=== PATIENT | female | born 1925 | race Hispanic/Latino ===

== ENCOUNTER 2016-12-21 22:54 | Observation (INO) | payer MEDICARE ==
[2016-12-21] MEDS ORDERED: Morphine 2 mg/ml ISec IM STA (23:24)
--- NOTE | 2016-12-21 23:28 | ED PDOC ---
Arrival/HPI - General Historian: Patient, Family - History of Present Illness Time/Duration: Other (see hpi) Context: Home - General Chief Complaint: Finger,Hand,&Wrist Time Seen by Provider: 12/21/16 22:56 - History of Present Illness Narrative History of Present Illness (Text): 12/21/16 23:25 This 89 yo female presents to this ED c/o left finger pain x 2 days. Pain exacerbated x 2 hours ago. Patient has been taking Advil for pain with mild relief of symptoms. Denies fever, rash, trauma, or swelling. (Elodia Elliott) Past Medical History - Provider Review Nursing Documentation Reviewed: Yes - Infectious Disease Hx of Infectious Diseases: None - Tetanus Immunization Tetanus Immunization: Unknown - Cardiac Hx Congestive Heart Failure: Yes Hx Hypertension: Yes Hx Pacemaker: Yes Hx Peripheral Edema: Yes (ble +3) Other/Comment: varicose veins - Pulmonary Hx Respiratory Disorders: (has home o2) Hx Chronic Obstructive Pulmonary Disease (COPD): Yes - Renal Hx Renal Disorder: Yes - Endocrine/Metabolic Hx Endocrine Disorders: Yes Hx Diabetes Mellitus Type 2: Yes - Integumentary Other/Comment: reddened excoriated buttocks, bilateral lower extremities discolored - Musculoskeletal/Rheumatological Hx Falls: No - Gastrointestinal Hx Gastroesophageal Reflux: Yes - Psychiatric Hx Depression: No Hx Emotional Abuse: No Hx Physical Abuse: No Hx Substance Use: No - Surgical History Hx Open Heart Surgery: Yes (triple by pass) - Suicidal Assessment Feels Threatened In Home Enviroment: No Family/Social History - Physician Review Nursing Documentation Reviewed: Yes Family/Social History: No Known Family HX Smoking Status: Never Smoked Hx Alcohol Use: No Hx Substance Use: No Hx Substance Use Treatment: No Allergies/Home Meds Allergies/Adverse Reactions: Allergies No Known Allergies Allergy (Verified 12/04/11 15:43) Home Medications: Home Meds Medication Instructions Recorded Confirmed Aspirin 81 mg PO DAILY 12/22/16 12/22/16 Atorvastatin [Lipitor] 20 mg PO DAILY 12/22/16 12/22/16 Ferrous Gluconate [Fergon] 324 mg PO BID 12/22/16 12/22/16 Furosemide [Lasix] 40 mg PO BID 12/22/16 12/22/16 GlipiZIDE [Glucotrol] 5 mg PO DAILY 12/22/16 12/22/16 Isosorbide Mononitrate [Imdur] 60 mg PO DAILY 12/22/16 12/22/16 Metoprolol Tartrate [Lopressor] 50 mg PO DAILY 12/22/16 12/22/16 Multivit-Min/FA/Lycopen/Lutein 1 tab PO DAILY 12/22/16 12/22/16 [Centrum Silver Tablet] Spironolactone [Aldactone] 25 mg PO BID 12/22/16 12/22/16 rOPINIRole [Requip] 0.25 mg PO BID 12/22/16 12/22/16 Review of Systems - Review of Systems Constitutional: Normal. absent: Fatigue, Weight Change, Fevers Eyes: Normal ENT: Normal Respiratory: Normal. absent: SOB, Cough Cardiovascular: Normal. absent: Chest Pain Gastrointestinal: Normal. absent: Abdominal Pain, Nausea, Vomiting Genitourinary Female: Normal Musculoskeletal: Other ((+) b/l hand and finger painful Gouty Tophi ) Skin: Normal Neurological: Normal Endocrine: Normal Hemo/Lymphatic: Normal Psychiatric: Normal Physical Exam Temperature: Afebrile Blood Pressure: Normal Pulse: Regular Respiratory Rate: Normal Appearance: Positive for: Well-Appearing, Non-Toxic, Comfortable Pain Distress: None Mental Status: Positive for: Alert and Oriented X 3 - Systems Exam Head: Present: Atraumatic, Normocephalic Pupils: Present: PERRL Extroacular Muscles: Present: EOMI Conjunctiva: Present: Normal Mouth: Present: Moist Mucous Membranes Neck: Present: Normal Range of Motion Respiratory/Chest: Present: Clear to Auscultation, Good Air Exchange. No: Respiratory Distress, Wheezes Cardiovascular: Present: Regular Rate and Rhythm, Normal S1, S2 Back: Present: Normal Inspection Upper Extremity: Present: NORMAL PULSES, Neurovascularly Intact, Capillary Refill < 2s, Other (Giant Gouty Tophi of b/l Hands, left worse than right). No : Cyanosis, Edema, Swelling, Erythema, Temperature Abnormalties Lower Extremity: Present: Normal Inspection Neurological: Present: GCS=15, CN II-XII Intact, Speech Normal, Motor Func Grossly Intact, Normal Sensory Function Skin: Present: Warm, Dry, Normal Color. No: Rashes Psychiatric: Present: Alert, Oriented x 3 Vital Signs Temp Pulse Pulse Resp BP Pulse Ox 12/22/16 13:24 98 F 58 L 58 L 18 110/58 L 06/13/17 07:30 98.0 F 58 L 20 110/58 L 94 L 12/22/16 03:55 72 18 112/84 99 12/21/16 22:57 98.0 F 71 16 99/60 L 95 Medical Decision Making Re-evaluation Time: 01:40 Reassessment Condition: Re-examined, Improved ED Course and Treatment: 12/22/16 04:41 Patient was getting ready to be discharge when she became altered. Patient was found to be hypoglycemic. Started on hyperglycemic agents. Case discussed with Dr. Dill who is aware and agrees with the plan to observe patient at Med/ surg for hypoglycemia. Accepts patient under his service. (Ezio Live) 12/22/16 01:40 Re-evaluation. Patient feels better. Discussed results and plan with patient and her son who expresses understanding. All questions answered and there is agreement with the plan to discharge home with instructions. Patient stable for discharge. Return if symptoms persist or worsen (Elodia Elliott) - Lab Interpretations Lab Results: 12/22/16 02:40 12/22/16 02:40 Lab Results 12/22/16 03:49: POC Glucose (mg/dL) 181 H 12/22/16 03:26: POC Glucose (mg/dL) 278 H 12/22/16 02:40: Sodium 141, Potassium 5.4 H, Chloride 106, Carbon Dioxide 23, Anion Gap 17, BUN 88 H, Creatinine 2.0 H, Est GFR ( Amer) 28, Est GFR ( Non-Af Amer) 23, Random Glucose 28 L* D, Calcium 8.9, Total Bilirubin 0.3, AST 40 H, ALT 37, Alkaline Phosphatase 80, Troponin I 0.08 D, Total Protein 7.1, Albumin 4.1, Globulin 3.1, Albumin/Globulin Ratio 1.3 12/22/16 02:40: WBC 6.7, RBC 3.75, Hgb 11.7 L, Hct 34.8 L, MCV 92.8, MCH 31.2, MCHC 33.6, RDW 15.1 H, Plt Count 117 L, MPV 9.9, Gran % 63.2, Lymph % (Auto) 26.0, [place] % (Auto) 8.3 H, Eos % (Auto) 2.4, Baso % (Auto) 0.1, Gran # 4.25, Lymph # 1.8, [place] # 0.6, Eos # 0.2, Baso # 0.01 - Medication Orders Current Medication Orders: Acetaminophen (Tylenol 325mg Tab) 650 mg PO Q4H PRN PRN Reason: Pain, Mild (1-3) Allopurinol (Zyloprim) 100 mg PO DAILY [facility] Codeine Sulfate (Codeine) 30 mg PO Q4 PRN PRN Reason: Pain, moderate (4-7) Last Admin: 12/22/16 10:34 Dose: 30 mg Re-Assess: [facility] Pain Assessment Document 12/22/16 11:34 [facility] (Rec: 12/22/16 12:52 [facility] [id number]) Pain Reassessment Is this a pain reassessment? Yes Sleep Is patient sleeping during reassessment? No Presence of Pain Presence of Pain No Dextrose/Sodium Chloride (Dextrose 5%/0.45% Ns 1000 Ml) 1,000 mls @ 60 mls/hr IV .[id number] [facility] Last Admin: 12/22/16 05:06 Dose: 60 mls/hr Insulin Human Regular (Humulin R Low) 0 units SC ACHS [facility] PRN Reason: Protocol Last Admin: 12/22/16 11:30 Dose: Not Given Non-Admin Reason: Blood Sugar Parameter Discontinued Medications Colchicine (Colocrys) 1.2 mg PO STAT STA Stop: 12/21/16 23:32 Last Admin: 12/21/16 23:50 Dose: 1.2 mg Colchicine (Colocrys) 0.6 mg PO STAT STA Stop: 12/22/16 00:16 Last Admin: 12/22/16 00:44 Dose: 0.6 mg Dextrose (Dextrose 50% Inj) Confirm Administered Dose 50 ml .ROUTE .STK-MED ONE Stop: 12/22/16 03:23 Last Admin: 12/22/16 03:26 Dose: 50 ml Comments: adm IV push for blood sugar level of 28 Dextrose (Dextrose 50% Inj) 50 ml IVP STAT STA Stop: 12/22/16 05:49 Last Admin: 12/22/16 05:53 Dose: 50 ml Morphine Sulfate (Morphine) 1 mg IM STAT STA Stop: 12/21/16 23:25 Last Admin: 12/21/16 23:49 Dose: 1 mg Ondansetron HCl (Zofran Odt) 4 mg PO STAT STA Stop: 12/21/16 23:25 Last Admin: 12/21/16 23:49 Dose: 4 mg Oxycodone/Acetaminophen (Percocet 2.5/325 Mg Tab) 1 tab PO STAT STA Stop: 12/22/16 01:01 Last Admin: 12/22/16 01:26 Dose: 1 tab Pneumococcal Polyvalent Vaccine (Pneumovax 23 Vaccine) 0.5 ml IM .ONCE ONE Stop: 12/22/16 13:38 Disposition/Present on Arrival - Present on Arrival Any Indicators Present on Arrival: No History of DVT/PE: No History of Uncontrolled Diabetes: Yes Urinary Catheter: No History of Decub. Ulcer: No History Surgical Site Infection Following: None - Disposition Have Diagnosis and Disposition been Completed?: Yes Disposition Time: 03:40 Patient Plan: Observation - Disposition Diagnosis: Multiple gouty tophi, Hand pain, Hypoglycemia secondary to sulfonylurea Disposition: HOSPITALIZED Patient Problems: Current Active Problems Problem Status Onset Hand pain Acute Hypoglycemia secondary to sulfonylurea Acute Multiple gouty tophi Acute Condition: GOOD
[2016-12-22] MEDS ORDERED: Oxycodone/Acetaminophen 2.5/325 mg Tab PO STA (01:00)
[2016-12-22 02:49] LABS: ADD MANUAL DIFF? NO
[2016-12-22 02:52] LABS: BASO # 0.01 K/mm3 (0.0-2.0); BASO % 0.1 % (0.0-3.0); EOS # 0.2 (0.0-0.7); EOS % 2.4 % (1.5-5.0); GRAN # 4.25 (1.4-6.5); GRAN % 63.2 % (50.0-68.0); HEMATOCRIT 34.8 % (36.0-48.0); LYMPH # 1.8 (1.2-3.4); MEAN CELL VOLUME 92.8 fL (80.0-105.0); MEAN CORPUSCULAR HEMOGLOBIN 31.2 pg (25.0-35.0); MEAN CORPUSCULAR HGB CONC 33.6 g/dl (31.0-37.0); MEAN PLATELET VOLUME 9.9 fl (7.0-11.0); MONO # 0.6 (0.1-0.6); MONO % 8.3 % (1.0-6.0); PLATELET COUNT 117 10^3/uL (120.0-450.0); RED CELL DISTRIBUTION WIDTH 15.1 % (11.5-14.5); WHITE BLOOD COUNT 6.7 10^3/ul (4.5-11.0)
[2016-12-22 03:08] LABS: ALB/GLOB RATIO 1.3 (1.1-1.8); BILIRUBIN,TOTAL 0.3 mg/dL (0.2-1.3); CALCIUM 8.9 mg/dL (8.4-10.5); POTASSIUM 5.4 mmol/L (3.6-5.0); TOTAL PROTEIN 7.1 g/dL (5.8-8.3)
[2016-12-22 03:18] LABS: TROPONIN I 0.08 ng/mL
[2016-12-22] MEDS ORDERED: Dextrose 50% SYRINGE Inj (50 ml) ONE (03:22)
[2016-12-22] MEDS ORDERED: Dextrose 5%/0.45% NS 1,000 ML IV SCH (04:45)
[2016-12-22] MEDS ORDERED: Dextrose 50% SYRINGE Inj (50 ml) IVP STA (05:48)
[2016-12-22] MEDS: Insulin Reg-LOW-Coverage SC SCH ×3 (08:17→16:22)
[2016-12-22 13:12] LABS: URIC ACID 9.2 mg/dL (2.5-6.2)
[2016-12-22 13:37] VITALS: BMI 27.6
[2016-12-22] MEDS ORDERED: Pneumococcal 23-Valent Vaccine IM ONE (13:37)
--- NOTE | 2016-12-22 13:38 | RAD ---
PROCEDURE: Left Hand Radiographs. HISTORY: hand pain , ? gouty arthritis COMPARISON: None. FINDINGS: BONES: Normal. No fracture. JOINTS: Multiple bony erosions are seen throughout the hand consistent with an erosive arthritis such as gout SOFT TISSUES: Normal. OTHER FINDINGS: None. IMPRESSION: Multiple periarticular bony erosions consistent with gout
--- NOTE | 2016-12-22 14:17 | HP ---
CHIEF COMPLAINT AND HISTORY OF PRESENT ILLNESS: This is an 88-year-old female who [facility] because she is complaining of pain in the left fingers for the past 2 days. She said she has a history of gout and arthritis. She has been using Advil, but not much relief. She came in for further evaluation. She states she is diabetic. She has no complaints of any chest pain or shortne ss of breath, no nausea, no vomiting, no dysuria or frequency. She is unsteady on her feet and does not walk well at home. Her son is at the bedside who is giving give me information. She states that she has diabetes, but the son is not aware whether she has diabetes. They did not bring her medicat ion list and are having a family member come to bring her medications. She says she eats well. She has no abdominal pain, no back pain, no dysuria or frequency, no nocturia. REVIEW OF SYSTEMS: All of the review of symptoms is within normal limits except as mentioned. PAST MEDICAL HISTORY: Coronary artery disease, status post CABG; aortic valve replacement, pacemaker , GERD; diabetes, type 2; hypertension, dyslipidemia, varicose veins, osteoarthritis; CKD, stage III. FAMILY HISTORY: Noncontributory. SOCIAL HISTORY: She does not smoke or drink. MEDICATIONS: Unknown. ALLERGIES: No known drug allergies. PHYSICAL EXAMINATION: VITAL SIGNS: Temperature is 98, pulse of 58, blood pressure 110/58, respirations 20, O2 saturation 9 4%. Height is 5 feet 6, weight is 171 pounds, BMI is 27. GENERAL: Patient lying in bed, flat, and in no apparent distress. HEAD AND NECK EXAM: Atraumatic, normocephalic. Conjunctivae are pink. Throat clear and mouth with moist mucosa. Oropharynx benign. EYES: Extraocular movements are intact. PERRLA. NECK: Supple. No JVD, thyromegaly, or adenopathy. No bruits. HEART: S1 and S2 regular rate and rhythm. No murmurs, rubs, or gallops. LUNGS: Clear to auscultation bilaterally. No wheezing rales or rhonchi appreciated. No retraction s on exam. ABDOMEN: Soft, nontender, nondistended. Bowel sounds are positive in all quadrants. No rebound. No hepatosplenomegaly. EXTREMITIES: No cyanosis, clubbing, or edema. In the hands, there are finger deformities of the P IP, DIP, and MCP joints. NEURO: No facial asymmetry, tongue is midline, no uvula deviation. Power is 5/5 in upper extremity and 5/5 in lower extremity. Sensation is normal in upper extremity and lower extremity. PSYCH: Awake, alert, oriented x3. No anxiety or depression symptoms. Good insight. Normal affec t. : No CVA tenderness VASCULAR: 2+ pulses in carotid and pedal pulses. SKIN: No erythema or abnormal nodules noted. SPINE: Normal curvature. LYMPHADENOPATHY: No anterior cervical or posterior cervical adenopathy. No inguinal adenopathy. LABORATORY DATA: Sodium is 141, potassium is 5.4, creatinine is 2.0 (baseline creatinine is 1.6). G lucose was 28; repeat this morning is 177. Troponin 0.08. White count of 6.7, hemoglobin 11.7 ASSESSMENT: 1. Left hand pain secondary to osteoarthritis/gout. 2. Hypoglycemia. 3. Diabetes, type 2. 4. Coronary artery disease. 5. Pacemaker. 6. Aortic valve replacement. 7. Gastroesophageal reflux disease. 8. Dyslipidemia. 9. Chronic kidney disease, stage III, with acute kidney injury. 10. Hyperkalemia. PLAN: The patient is currently comfortable. She was given morphine in the ER. I will place her on codeine. She is going to be on colchicine. She was given colchicine in the ER. The patient is on I V dextrose with half normal saline. She is going to get fingersticks done. I will get Dr. Marquez moreno to evaluate the patient. The son is going to bring her home medications. I suspect that she may be hypoglycemic from her diabetic medications, especially that she has acute kidney injury. Will re peat patient's blood work tomorrow. The patient is on dextrose; this should help her potassium. Toño Dill MD cc: [id number] TT: 12/22/2016 14:16:38 kiera
--- NOTE | 2016-12-22 22:37 | CARD ---
APPROVED REPORT EKG Measurement Heart [id number] <Conclusion> Atrial sensed, ventricular paced rhythm
[2016-12-23] MEDS: Insulin Reg-LOW-Coverage SC SCH ×4 (00:01→16:50)
--- NOTE | 2016-12-23 02:55 | CP.PCM.PN ---
Subjective - Date & Time of Evaluation Date of Evaluation: 12/23/16 Time of Evaluation: 02:51 - Subjective Subjective: S: Patient was seen for complaint of pain in left hand. Denies injury, numbness ,weakness. Has no other complaints. Medical record was reviewed. ROS:neg except as above. O: Last Vital Signs 3 Temp 97.9 F 12/22/16 16:00 Pulse 62 12/22/16 16:00 Resp 20 12/22/16 16:00 BP 111/63 12/22/16 16:00 Pulse Ox 99 12/22/16 16:00 Awake, alert , not in distress. LUNGS:Normal breathing pattern. LEFT HAND:Swelling, deformity of 2nd MP joint. A:Gout/Osteoarthritis. P:Ultram 50 mg PO x 1. Objective - Vital Signs/Intake and Output Vital Signs (last 24 hours): Temp Pulse Resp BP Pulse Ox 97.9 F 62 20 111/63 99 12/22/16 16:00 12/22/16 16:00 12/22/16 16:00 12/22/16 16:00 12/22/16 16:00 Intake and Output: 12/22/16 12/23/16 18:59 06:59 Intake Total 300 Balance 300 - Medications Medications: Current Medications Acetaminophen (Tylenol 325mg Tab) 650 mg PO Q4H PRN PRN Reason: Pain, Mild (1-3) Last Admin: 12/22/16 18:56 Dose: 650 mg Allopurinol (Zyloprim) 100 mg PO DAILY [facility] Last Admin: 12/22/16 16:45 Dose: 100 mg Codeine Sulfate (Codeine) 30 mg PO Q4 PRN PRN Reason: Pain, moderate (4-7) Last Admin: 12/23/16 00:58 Dose: 30 mg Dextrose/Sodium Chloride (Dextrose 5%/0.45% Ns 1000 Ml) 1,000 mls @ 60 mls/hr IV .[id number] [facility] Last Admin: 12/22/16 05:06 Dose: 60 mls/hr Insulin Human Regular (Humulin R Low) 0 units SC ACHS [facility] PRN Reason: Protocol Last Admin: 12/23/16 00:01 Dose: Not Given
[2016-12-23 07:44] LABS: ALB/GLOB RATIO 1.2 (1.1-1.8); BILIRUBIN,TOTAL 0.5 mg/dL (0.2-1.3); CALCIUM 8.6 mg/dL (8.4-10.5); MAGNESIUM 2.2 mg/dL (1.7-2.2); TOTAL PROTEIN 6.5 g/dL (5.8-8.3)
[2016-12-23 07:52] LABS: POTASSIUM 6.2 mmol/L (3.6-5.0)
[2016-12-23 08:01] LABS: HEMATOCRIT 33.5 % (36.0-48.0); MEAN CELL VOLUME 93.3 fL (80.0-105.0); MEAN CORPUSCULAR HEMOGLOBIN 30.6 pg (25.0-35.0); MEAN CORPUSCULAR HGB CONC 32.8 g/dl (31.0-37.0); MEAN PLATELET VOLUME 10.3 fl (7.0-11.0); RED CELL DISTRIBUTION WIDTH 15.3 % (11.5-14.5)
[2016-12-23] MEDS ORDERED: Sod Polystyrene Sulf 15 gm/60 ml Oral Susp PO STA (08:41)
--- NOTE | 2016-12-23 10:36 | DS ---
This is an 89-year-old female who is coming into the hospital after she had hypoglycemia. The patien t was found to be on glipizide and also had acute kidney injury. She had improvement of her symptoms after she was placed on dextrose. The patient had also been on Lasix as an outpatient. The patient was advised to discontinue Lasix and also the Aldactone that she was on. She is going to be on code ine for pain. She was taking NSAIDs with Advil at home. I did speak to the patient's son yesterday and today to give him an update. PHYSICAL EXAMINATION: VITAL SIGNS: Temperature is 98.2, pulse of 104, blood pressure 115/77, respirations 22, O2 saturatio ns 98%. GENERAL: The patient comfortable, in no acute distress. HEENT: Anicteric sclerae. Moist mucosa. NECK: No JVD or adenopathy. CARDIAC: S1/S2. No murmurs. No rubs. Regular. RESPIRATORY: Clear to auscultation bilaterally. No wheezes, rales, or rhonchi. Good air entry. ABDOMEN: Bowel sounds are positive, soft, nontender, and nondistended. EXTREMITIES: No edema. Has 1+ pulses. ASSESSMENT: 1. Hypoglycemia secondary to hypoglycemic medications: 1. Left hand pain secondary to osteoarthritis/gout. 2. Diabetes type 2. 3. Coronary artery disease. 4. Pacemaker. 5. Aortic valve replacement. 6. Gastroesophageal reflux disease. 7. Dyslipidemia. 8. Chronic kidney disease, stage III. 9. Hyperkalemia. PLAN: The patient is currently comfortable. She is on colchicine. She is on her codeine. She is o n isosorbide. She is going to continue with Lipitor for dyslipidemia. I did discontinue the patient 's Lasix, Aldactone and glipizide. I will discontinue the patient's IV fluids, see if she is able to maintain her fingersticks. She is going to be discharged home and follow up as an outpatient with Becca Juarez. I did tell the son to get repeat blood work done as an outpatient. Toño Dill MD cc: [id number] TT: 12/23/2016 10:35:42 tn
--- NOTE | 2016-12-23 10:46 | CON ---
DATE: 12/23/2016 INPATIENT CONSULT REASON FOR CONSULTATION: Left hand pain. HISTORY OF PRESENT ILLNESS: This is an 89-year-old female who was admitted for hypoglycemia who has longstanding bilateral hand pain. The patient has a history of gout and has had longstanding deformi ties and loss of function in both hands for years. According to her and her son, she has not had muc h in terms of treatment for this recently. He says that she did see a doctor who had recommended an ointment or cream to apply, but he did it for a short period of time, and now she is no longer using it. She does complain of bilateral hand pain. She denies any history of trauma. PHYSICAL EXAMINATION: GENERAL: This is an elderly female in no apparent distress. She is awake and alert. EXTREMITIES: Evaluation of both hands - she has some obvious deformities essentially in all her fing ers. She has multiple tophi present in her IP and MCP joints of both hands. She has really limited range of motion of her hands, particularly with her first and second fingers on both hands. She also has numerous tophi that appeared to be almost through the skin. X-rays of the left hand show multiple periarticular erosions consistent with her gouty arthropathy. IMPRESSION: Bilateral hand gouty arthropathy. PLAN: At this point, I recommended medical management for her chronic gout and also pain control. I also recommended some therapy, which can be done as an outpatient. Finally, I recommended to her so n and her that she should follow up with an orthopedic hand specialist for further evaluation and anand atment. If they agree with this, I will see them back on an as needed. Darin Tong MD cc: [id number] TT: 12/23/2016 10:45:28 Confirmation # [id number] Dictation # [id number] jn
[2016-12-23 16:11] VITALS: RESP 20
[2016-12-23 16:57] VITALS: BP 112/59; PULSE 79; TEMP 97.9; O2SAT 100
--- NOTE | 2016-12-23 18:19 | CON ---
DATE: 12/23/2016 REQUESTING PHYSICIAN: Dr. Dill. REASON FOR CONSULTATION: Dyspnea. HISTORY OF PRESENT ILLNESS: This is an 89-year-old woman well known to us from prior evaluations wit h a history of coronary artery disease, status post aortic valve replacement and bypass surgery, cond uction system disease, permanent pacemaker implant, who was admitted with severe pain in her fingers and hands for the past several days. She has a history of advanced gouty arthritis. She has also murillo d some increasing dyspnea. In the Emergency Room, she was treated with IV Lasix with some symptomati c improvement. She has been homebound and has been unable to have pacemaker interrogations performed for over a year. Her last study had suggested that her battery life was approximately 2 years. She is seen on 5R in the presence of her son. She denies any chest pain at present. PAST MEDICAL HISTORY: Notable for the problems mentioned above. She has a history of diabetes, hype rtension, hyperlipidemia, venous varicosities, renal insufficiency, osteoarthritis, gastroesophageal reflux disease. CURRENT MEDICATIONS: Include aspirin, codeine, insulin coverage, Imdur 60 mg daily, Lipitor 20 mg da vanna, Lopressor 50 mg daily, Requip 0.25 mg b.i.d. and allopurinol. ALLERGIES: She has no reported allergies. SOCIAL HISTORY: She does not smoke or drink. FAMILY HISTORY: She cannot recall. REVIEW OF SYSTEMS: A ten-point review of systems is otherwise unremarkable. PHYSICAL EXAMINATION: GENERAL: She is a frail appearing, very elderly woman. VITAL SIGNS: Her blood pressure is 116/70, the pulse of 100, respirations are 14. She is currently afebrile. HEENT: Temporal wasting is noted. Normocephalic. NECK: No JVD. CHEST: Diminished breath sounds heard at the bases with faint rales noted at the left base. HEART: PMI is displaced laterally with a systolic murmur at the left sternal border. ABDOMEN: Soft, nontender with normoactive bowel sounds. EXTREMITIES: Marked gouty changes noted in both hands. No edema present. PSYCHIATRIC: Flat affect, but normal mood. NEUROLOGIC: Alert and oriented x 3. DIAGNOSTIC DATA: Sodium 134, potassium is 6.2 and it has been repeated. BUN and creatinine are 83 a nd 2.3. White count 5.0. Hemoglobin and hematocrit 11.0 and 33.5 with a platelet count of 96,000. BNP 40,600. Chest x-ray was not available in the system. Electrocardiogram reveals atrial-sensed ve ntricular paced rhythm. IMPRESSION: 1. Mildly decompensated congestive heart failure, acute on chronic. 2. Severe hand pain secondary to advanced gouty arthritis. 3. Coronary artery disease, status post bypass surgery and aortic valve replacement. 4. Conduction system disease, status post permanent pacemaker implant in need of pacemaker interroga tion. RECOMMENDATIONS: Current medications should be continued. Conservative management is advised. A kemi blackman interrogation was arranged and performed at the bedside. Normal pacemaker function was found and estimated battery life was 14 months. Outpatient followup of her pacemaker with transtelephonic monitoring will be arranged as well. From a cardiac standpoint, she appears stable for discharge ho me today. Thank you for this consultation. I am happy to see as needed. Cody Garcia MD cc: [id number] TT: 12/23/2016 18:18:31 Confirmation # [id number] Dictation # [id number] mn
[2016-12-23 18:20] LABS: CALCIUM 9.4 mg/dL (8.4-10.5)
[2016-12-23 18:24] LABS: POTASSIUM 5.6 mmol/L (3.6-5.0)
[2016-12-23] MEDS ORDERED: Sod Polystyrene Sulf 15 gm/60 ml Oral Susp PO ONE (18:28)
== END 2016-12-23 22:10 | disposition home or self-care (01) ==
LOC: ED 22:54 → ERH 12-22 04:34 → 5RSO 12-22 06:59
PROVIDERS: ADMIT Internal Medicine Nephrology; ATTEND Internal Medicine Nephrology
DX: E11.649 Type 2 diabetes mellitus with hypoglycemia without coma (principal); M19.042 Primary osteoarthritis, left hand; M10.042 Idiopathic gout, left hand; I25.10 Atherosclerotic heart disease of native coronary artery without angina pectoris; Z95.0 Presence of cardiac pacemaker; Z95.2 Presence of prosthetic heart valve; K21.9 Gastro-esophageal reflux disease without esophagitis; E78.5 Hyperlipidemia, unspecified; I13.0 Hypertensive heart and chronic kidney disease with heart failure and stage 1 through stage 4 chronic kidney disease, or unspecified chronic kidney disease; I50.9 Heart failure, unspecified; N18.3 Chronic kidney disease, stage 3 (moderate); E87.5 Hyperkalemia; E11.22 Type 2 diabetes mellitus with diabetic chronic kidney disease; I45.9 Conduction disorder, unspecified; J44.9 Chronic obstructive pulmonary disease, unspecified; M1A.9XX1 Chronic gout, unspecified, with tophus (tophi); N17.9 Acute kidney failure, unspecified; Z79.82 Long term (current) use of aspirin; Z79.899 Other long term (current) drug therapy; Z95.1 Presence of aortocoronary bypass graft; Z99.81 Dependence on supplemental oxygen; I83.90 Asymptomatic varicose veins of unspecified lower extremity; S30.810A Abrasion of lower back and pelvis, initial encounter; T38.3X5A Adverse effect of insulin and oral hypoglycemic [antidiabetic] drugs, initial encounter

== ENCOUNTER 2016-12-26 23:25 | Inpatient (IN) | payer MEDICARE ==
--- NOTE | 2016-12-27 00:33 | ED PDOC ---
Arrival/HPI - General Chief Complaint: Weakness/Neurological Deficit Time Seen by Provider: 12/27/16 00:21 Historian: Patient, Family (Son) - History of Present Illness Narrative History of Present Illness (Text): 12/27/16 00:30 Isabel Monroy is a2 89 year old female, whose past medical history includes CAD, s/p CABG, aortic valve replacement, pacemaker, GERD, diabetes, hypertension, dyslipidemia, osteoarthritis, and chronic kidney disease, who presents to the Emergency department complaining of near-syncope and weakness. Son reports patient has been near-syncopal at times and very weak for the past 3 days. Son notes patient has not been eating or drinking regularly. Patient also reports diffuse joint aches. Son notes patient was recently discharged from the hospital on 12/23/2016. Patient denies any nausea, vomiting, diarrhea, headache , dizziness, or any other complaints. Time/Duration: < week (3 days) Symptom Onset: Gradual Symptom Course: Unchanged Activities at Onset: Rest, Light Context: Home Past Medical History - Provider Review Nursing Documentation Reviewed: Yes - Infectious Disease Hx of Infectious Diseases: None - Tetanus Immunization Tetanus Immunization: Unknown - Cardiac Hx Congestive Heart Failure: Yes Hx Hypertension: Yes Hx Pacemaker: Yes Hx Peripheral Edema: Yes (ble +3) Other/Comment: varicose veins - Pulmonary Hx Respiratory Disorders: (has home o2) Hx Chronic Obstructive Pulmonary Disease (COPD): Yes - HEENT Hx HEENT Disorder: Yes (eyeglasses) - Renal Hx Renal Disorder: Yes - Endocrine/Metabolic Hx Endocrine Disorders: Yes Hx Diabetes Mellitus Type 2: Yes - Integumentary Other/Comment: reddened excoriated buttocks, bilateral lower extremities discolored - Musculoskeletal/Rheumatological Hx Falls: No - Gastrointestinal Hx Gastroesophageal Reflux: Yes - Psychiatric Hx Depression: No Hx Emotional Abuse: No Hx Physical Abuse: No Hx Substance Use: No - Surgical History Hx Open Heart Surgery: Yes (triple by pass) - Suicidal Assessment Feels Threatened In Home Enviroment: No Family/Social History - Physician Review Nursing Documentation Reviewed: Yes Family/Social History: No Known Family HX Smoking Status: Never Smoked Hx Alcohol Use: No Hx Substance Use: No Hx Substance Use Treatment: No Allergies/Home Meds Allergies/Adverse Reactions: Allergies No Known Allergies Allergy (Verified 12/04/11 15:43) Home Medications: Home Meds Medication Instructions Recorded Confirmed Aspirin 81 mg PO DAILY 12/22/16 12/27/16 Atorvastatin [Lipitor] 20 mg PO DAILY 12/22/16 12/27/16 Isosorbide Mononitrate [Imdur] 60 mg PO DAILY 12/22/16 12/27/16 Multivit-Min/FA/Lycopen/Lutein 1 tab PO DAILY 12/22/16 12/26/16 [Centrum Silver Tablet] rOPINIRole [Requip] 0.25 mg PO BID 12/22/16 12/27/16 Allopurinol [Zyloprim] 1 tab PO DAILY 12/26/16 12/27/16 Metoprolol Succinate [Toprol XL] 1 tab PO DAILY 12/26/16 12/27/16 Polyethylene Glycol 3350 [Miralax] 17 g PO BID 12/26/16 12/26/16 oxyCODONE/Acetaminophen [Percocet 1 tab PO TID 12/26/16 12/26/16 5/325 mg Tab] predniSONE [predniSONE Tab] 1 tab PO DAILY 12/26/16 12/27/16 Review of Systems - Physician Review All systems were reviewed & negative as marked: Yes - Review of Systems Constitutional: Other (+generalized weakness). absent: Fevers Eyes: Normal ENT: Normal Respiratory: Normal. absent: SOB, Cough Cardiovascular: Other (+near-syncope) Gastrointestinal: Appetite Changes (+loss of appetite) Genitourinary Female: Normal Musculoskeletal: Arthralgias Skin: Normal Neurological: Normal. absent: Headache, Dizziness Endocrine: Normal Hemo/Lymphatic: Normal Psychiatric: Normal Physical Exam Vital Signs Reviewed: Yes Vital Signs Temp Pulse Resp BP Pulse Ox 12/27/16 02:37 71 18 111/58 L 100 12/26/16 23:38 97.8 F 81 20 106/58 L 97 Temperature: Afebrile Blood Pressure: Normal Pulse: Regular Respiratory Rate: Normal Appearance: Positive for: Well-Appearing, Non-Toxic, Comfortable Pain Distress: None Mental Status: Positive for: Alert and Oriented X 3 - Systems Exam Head: Present: Atraumatic, Normocephalic Pupils: Present: PERRL Extroacular Muscles: Present: EOMI Conjunctiva: Present: Normal Mouth: Present: Moist Mucous Membranes Neck: Present: Normal Range of Motion Respiratory/Chest: Present: Clear to Auscultation, Good Air Exchange. No: Respiratory Distress, Accessory Muscle Use Cardiovascular: Present: Regular Rate and Rhythm, Normal S1, S2. No: Murmurs Abdomen: Present: Normal Bowel Sounds. No: Tenderness, Distention, Peritoneal Signs Back: Present: Normal Inspection Upper Extremity: Present: Normal ROM, NORMAL PULSES, Neurovascularly Intact, Capillary Refill < 2s, Deformity (Chronic deformities of bilateral hand joints) . No: Cyanosis, Edema, Tenderness, Swelling, Erythema, Temperature Abnormalties Lower Extremity: Present: Normal Inspection. No: Edema Neurological: Present: GCS=15, CN II-XII Intact, Speech Normal Skin: Present: Warm, Dry, Normal Color. No: Rashes Psychiatric: Present: Alert, Oriented x 3, Normal Insight, Normal Concentration Medical Decision Making ED Course and Treatment: 12/27/16 00:30 Impression: 89 year old female presents for near-syncope, generalized weakness, loss of appetite, and joint aches. Differential Diagnosis include but are not limited to: near-syncope vs. hypoglycemia vs. ACS vs. electrolyte imbalance vs. gout Plan: -- CT Head w/o contrast -- EKG -- Chest X-ray -- Labs, cardiac enzymes -- Urinalysis -- Reassess and disposition Prior Visits: Notes and results from previous visits were reviewed. On 12/21/2016, pt was seen in the Emergency department for joint pain and hypoglycemia. Pt admitted to the hospital for further evaluation. Progress Notes: 12/27/16 01:27 Reviewed EKG, 100% paced rhythm at 81 bpm. 12/27/16 01:48 Troponin: 1.49. Lovenox ordered. 12/27/16 02:16 Reviewed radiology, CT Head shows: No evidence of acute intracranial hemorrhage. No midline shift or hydrocephalus. Age-appropriate atrophy. Areas of diminished density in the periventricular and subcortical white matter bilaterally, nonspecific however likely represent chronic small vessel ischemic change.If symptoms persist, correlation with MRI is advised. 12/27/16 02:55 Reviewed Chest X-ray, shows chronic changes. 12/27/16 02:[address] Madden, covering for Dr. Turner, who is aware and agrees with plan. Pt will be admitted to Telemetry for hyperkalemia and NSTEMI under Dr. Dill's service. Request Dr. Garcia/Lesley on consult. - Critical Care Critical Care Minutes: 30 minutes - Lab Interpretations Lab Results: 12/27/16 00:45 12/27/16 00:45 Lab Results 12/27/16 00:45: WBC 3.9 L D, RBC 3.57, Hgb 11.1 L, Hct 32.7 L, MCV 91.6, MCH 31.1, MCHC 33.9, RDW 14.7 H, Plt Count 81 L, MPV 9.9 12/27/16 00:45: Sodium 138, Potassium 5.7 H*, Chloride 103, Carbon Dioxide 21, Anion Gap 20, BUN 101 H, Creatinine 2.7 H, Est GFR ( Amer) 20, Est GFR ( Non-Af Amer) 17, Random Glucose 137 H, Calcium 9.4, Total Bilirubin 0.7, AST 50 H, ALT 44, Alkaline Phosphatase 81, Lactate Dehydrogenase 597, Total Creatine Kinase 127, Troponin I 1.49 H* D, Total Protein 6.9, Albumin 3.7, Globulin 3.1, Albumin/Globulin Ratio 1.2 12/27/16 00:45: PT 12.2 H, INR 1.13 H, APTT 22.5 L I have reviewed the lab results: Yes - RAD Interpretation Narrative RAD Interpretations (Text): CT Head shows: There is mild ventriculomegaly and cortical sulci widening. There are areas of diminished density in the periventricular and subcortical white matter bilaterally, nonspecific. There is no evidence for hemorrhage, mass effect, or extra-axial fluid collections. No skull abnormalities are seen. Small amount of fluid in the RIGHT maxillary sinus IMPRESSION: No evidence of acute intracranial hemorrhage. No midline shift or hydrocephalus. Age-appropriate atrophy. Areas of diminished density in the periventricular and subcortical white matter bilaterally, nonspecific however likely represent chronic small vessel ischemic change.If symptoms persist, correlation with MRI is advised. Radiology Orders: 12/27/16 00:31 HEAD W/O CONTRAST [CT] Stat 12/27/16 00:32 CHEST PORTABLE [RAD] Stat Oncologist: Radiologist - EKG Interpretation Interpreted by ED Physician: Yes Type: 12 lead EKG - Medication Orders Current Medication Orders: Allopurinol (Zyloprim) 100 mg PO DAILY [facility] Last Admin: 12/27/16 10:19 Dose: 100 mg Aspirin (Aspirin Chewable) 81 mg PO DAILY [facility] Last Admin: 12/27/16 10:10 Dose: 81 mg Atorvastatin Calcium (Lipitor) 20 mg PO DAILY [facility] Last Admin: 12/27/16 10:09 Dose: 20 mg Colchicine (Colocrys) 0.6 mg PO DAILY [facility] Last Admin: 12/27/16 12:19 Dose: 0.6 mg Sodium Chloride (Sodium Chloride 0.45%) 1,000 mls @ 50 mls/hr IV .Q20H [facility] Last Admin: 12/27/16 12:20 Dose: 50 mls/hr Insulin Human Lispro (Humalog High) 0 units SC ACHS [facility] PRN Reason: Protocol Last Admin: 12/27/16 18:10 Dose: 4 units Isosorbide Mononitrate (Imdur) 60 mg PO DAILY [facility] Last Admin: 12/27/16 10:09 Dose: 60 mg Methylprednisolone (Solu-Medrol) 30 mg IV Q12 [facility] Last Admin: 12/27/16 12:19 Dose: 30 mg Metoprolol Succinate (Toprol Xl) 50 mg PO DAILY [facility] Last Admin: 12/27/16 10:12 Dose: 50 mg Oxycodone/Acetaminophen (Percocet 5/325 Mg Tab) 1 tab PO TID [facility] Stop: 12/30/16 10:01 Last Admin: 12/27/16 18:11 Dose: 1 tab Polyethylene Glycol (Miralax) 17 gm PO BID [facility] Last Admin: 12/27/16 18:13 Dose: 17 gm Ropinirole HCl (Requip) 0.25 mg PO BID [facility] Last Admin: 12/27/16 18:13 Dose: 0.25 mg Discontinued Medications Dextrose (Dextrose 50% Inj) 50 ml IVP ONCE ONE Stop: 12/27/16 03:07 Last Admin: 12/27/16 03:19 Dose: 50 ml Enoxaparin Sodium (Lovenox) 50 mg SC STAT [facility] PRN Reason: Protocol Stop: 12/27/16 01:48 Last Admin: 12/27/16 02:03 Dose: 50 mg Insulin Human Regular (Humulin R) 10 units IVP STAT STA Stop: 12/27/16 03:07 Last Admin: 12/27/16 03:19 Dose: 10 units Prednisone (Prednisone Tab) 10 mg PO DAILY [facility] Last Admin: 12/27/16 10:12 Dose: 10 mg Sodium Polystyrene Sulfonate (Kayexalate Oral Susp) 30 gm PO ONCE ONE Stop: 12/27/16 01:46 Last Admin: 12/27/16 02:03 Dose: 30 gm - Scribe Statement The provider has reviewed the documentation as recorded by the Calosiboswaldo Almendarez All medical record entries made by the Calosiboswaldo were at my direction and personally dictated by me. I have reviewed the chart and agree that the record accurately reflects my personal performance of the history, physical exam, medical decision making, and the department course for this patient. I have also personally directed, reviewed, and agree with the discharge instructions and disposition. Disposition/Present on Arrival - Present on Arrival Any Indicators Present on Arrival: No History of DVT/PE: No History of Uncontrolled Diabetes: Yes Urinary Catheter: No History of Decub. Ulcer: No History Surgical Site Infection Following: None - Disposition Have Diagnosis and Disposition been Completed?: Yes Diagnosis: Near syncope, NSTEMI (non-ST elevated myocardial infarction) Disposition: HOSPITALIZED Disposition Time: 02:55 Condition: STABLE
[2016-12-27 00:59] LABS: HEMATOCRIT 32.7 % (36.0-48.0); MEAN CELL VOLUME 91.6 fL (80.0-105.0); MEAN CORPUSCULAR HEMOGLOBIN 31.1 pg (25.0-35.0); MEAN CORPUSCULAR HGB CONC 33.9 g/dl (31.0-37.0); MEAN PLATELET VOLUME 9.9 fl (7.0-11.0); RED CELL DISTRIBUTION WIDTH 14.7 % (11.5-14.5); WHITE BLOOD COUNT 3.9 10^3/ul (4.5-11.0)
[2016-12-27 01:04] LABS: ALB/GLOB RATIO 1.2 (1.1-1.8); BILIRUBIN,TOTAL 0.7 mg/dL (0.2-1.3); CALCIUM 9.4 mg/dL (8.4-10.5); TOTAL PROTEIN 6.9 g/dL (5.8-8.3)
[2016-12-27 01:08] LABS: INR 1.13 (0.93-1.08); PARTIAL THROMBOPLASTIN TIME 22.5 Seconds (23.7-30.8)
[2016-12-27 01:14] LABS: POTASSIUM 5.7 mmol/L (3.6-5.0)
[2016-12-27 01:21] LABS: TROPONIN I 1.49 ng/mL
[2016-12-27] MEDS ORDERED: Sod Polystyrene Sulf 15 gm/60 ml Oral Susp PO ONE (01:45)
[2016-12-27] MEDS ORDERED: Enoxaparin 60 mg Syringe SC STA (01:47)
[2016-12-27] MEDS ORDERED: Dextrose 50% SYRINGE Inj (50 ml) IVP ONE (03:06)
[2016-12-27] MEDS ORDERED: Insulin Regular 1 UNITS/0.01 ML ML IVP STA (03:06)
[2016-12-27 05:23] VITALS: BMI 18.0
[2016-12-27 08:21] LABS: URINE BILIRUBIN NEGATIVE (NEGATIVE); URINE BLOOD SMALL (NEGATIVE); URINE GLUCOSE (UA) NEGATIVE (NEGATIVE); URINE KETONE NEGATIVE (NEGATIVE); URINE LEUKOCYTE ESTERASE TRACE Leu/uL (NEGATIVE); URINE PROTEIN NEGATIVE mg/dL (<30 mg/dL); URINE UROBILINOGEN 0.2 E.U./dL (<1 E.U./dL)
--- NOTE | 2016-12-27 08:33 | RAD ---
HISTORY: weak COMPARISON: Chest x-ray performed 09/27/13 TECHNIQUE: Chest, one view. FINDINGS: The patient's chin obscures evaluation of the lung apices. LUNGS: Right upper lobe interstitial markings may be chronic. Mild right upper lobe infiltrate is not excluded. Bilateral hilar prominence. Please note that chest x-ray has limited sensitivity for the detection of pulmonary masses. PLEURA: No significant pleural effusion identified. No definite pneumothorax . CARDIOVASCULAR: Cardiomegaly. Median sternotomy wires. Prosthetic cardiac valve. Dual lead left-sided pacemaker. OSSEOUS STRUCTURES: Degenerative changes. VISUALIZED UPPER ABDOMEN: Unremarkable. OTHER FINDINGS: None. IMPRESSION: Right upper lobe interstitial markings may be chronic. Mild right upper lobe infiltrate is not excluded. Bilateral hilar prominence. Cardiomegaly.
[2016-12-27 08:36] LABS: URINE APPEARANCE CLEAR (CLEAR); URINE COLOR YELLOW (YELLOW)
[2016-12-27 09:12] LABS: URINE AMORPHOUS SEDIMENT FEW; URINE BACTERIA MOD (NEG); URINE CALCIUM OXALATE CRYSTALS SMALL /hpf
[2016-12-27] MEDS: POLYETHYLENE GLYCOL 3350 17 GM/Dose PACKET PO SCH ×2 (10:09→18:13)
[2016-12-27] MEDS: Oxycodone/Acetaminophen 5/325 mg Tab PO SCH ×3 (10:10→18:11)
[2016-12-27] MEDS: Metoprolol Succinate 50 mg XL Tab PO SCH (10:12)
--- NOTE | 2016-12-27 10:32 | CT ---
PROCEDURE: CT HEAD WITHOUT CONTRAST. HISTORY: near syncope COMPARISON: None available. TECHNIQUE: Axial computed tomography images were obtained through the head/brain without intravenous contrast. Radiation dose: Total exam DLP = 329.42 mGy-cm. This CT exam was performed using one or more of the following dose reduction techniques: Automated exposure control, adjustment of the mA and/or kV according to patient size, and/or use of iterative reconstruction technique. FINDINGS: HEMORRHAGE: No intracranial hemorrhage. BRAIN: Diffuse atrophy with prominence of the ventricles and sulci noted. No mass effect or edema. Scattered white matter hypodensities, which are nonspecific, but often seen with chronic microvascular ischemic disease. Please note that MRI with diffusion imaging is more sensitive in the detection of acute ischemic event. VENTRICLES: No hydrocephalus. CALVARIUM: Unremarkable. PARANASAL SINUSES: Small fluid in the right maxillary sinus. The visualized paranasal sinuses appear otherwise clear. MASTOID AIR CELLS: Unremarkable as visualized. No inflammatory changes. OTHER FINDINGS: None. IMPRESSION: Generalized atrophy. Nonspecific white matter changes. Small fluid in the right maxillary sinus. Preliminary impression was provided by virtual radiologic.
[2016-12-27 11:19] LABS: CALCIUM 9.3 mg/dL (8.4-10.5); POTASSIUM 4.9 mmol/L (3.6-5.0)
[2016-12-27 11:33] LABS: TROPONIN I 1.31 ng/mL
[2016-12-27] MEDS: MethylPREDNISolone 40 mg Vial IV SCH ×2 (12:19→21:40)
[2016-12-27] MEDS: Sodium Chloride 0.45% 1,000 ML IV SCH (12:20)
--- NOTE | 2016-12-27 12:43 | HP ---
ADDENDUM LABORATORY DATA: The patient's lab work noted. She has positive troponin of 1.49, and followup is 1 .31. I do not know whether it is because of worsening of her kidney function or she is having non-ST elevation CO. The patient is on beta-cole, aspirin. She is on Imdur, and Dr. Garcia is following the patient along with us. Given the patient's age, probably she needs to be treated conservatively. Rashad Madden MD cc: [phone] TT: 12/27/2016 12:42:18 jn
--- NOTE | 2016-12-27 15:15 | HP ---
HISTORY OF PRESENT ILLNESS: The patient is an 89-year-old white female, not a very good historian, d oes not tell much. I called son, Kane, to get some history. According to him, she has not been f eeling well since last . She was having pain in her left hand, and she saw Dr. Juarez, who ga ve her allopurinol and prednisone. She has not been eating and drinking and did not have bowel movem ent for almost a week because of poor oral intake, so last night when she came out of the bathroom, s he almost passed out, and Kane's supported her and start her on the chair, and they called am cristofer, and she was brought to Emergency Room. PAST MEDICAL HISTORY: Significant for: 1. Hypertension. 2. Coronary artery disease, status post open heart surgery. 3. History of aortic valve replacement. 4. History of pacemaker placement. 5. Noninsulin dependent diabetes. 6. Hyperlipidemia. 7. Generalized osteoarthritis. 8. Chronic kidney disease. The patient was recently admitted in hospital for left hand gouty arthrit is, and she was discharged on 12/23. She also has past medical history significant for varicose vein, stage III chronic kidney disease. SOCIAL HISTORY: She lives with her son and [id number] and denies smoking or drinking. FAMILY HISTORY: Irrelevant. MEDICATIONS AT HOME: She is on metoprolol 25 daily, prednisone 20 mg daily, allopurinol 1 tablet priyanka ly, Requip 0.25 twice a day, Imdur 60 mg daily, Lipitor 20 mg daily, aspirin 81 daily, MiraLax, Perco cet, and multivitamin. REVIEW OF SYSTEMS: Significant for generalized weakness, poor oral intake, constipation and left ram d pain. PHYSICAL EXAMINATION: GENERAL: She is sleepy, but arousable. VITAL SIGNS: She is afebrile, pulse 65, respirations 18, blood pressure 106/56. LUNGS: Bilateral fair airflow, no rhonchi or crackle. HEART: S1, S2 audible. ABDOMEN: Soft but slightly distended with positive bowel sounds. NEUROLOGIC: The patient is sleepy but arousable, able to move all extremities. No focal deficit. LABORATORY DATA: WBC 3.9, hemoglobin 11, hematocrit 32.7, platelets of 81. PT 12.2, INR 1.13, PTT 2 2.5. Chemistry: Sodium 140, potassium 4.9, chloride 106, CO2 of 23, BUN 95, creatinine 2.5, blood s ugar 157. Troponin is 1.31. Urinalysis is unremarkable. X-ray chest was done that shows right uppe r lobe interstitial marking, may be chronic, mid right upper lobe infiltrate cannot be excluded, bila teral hilar prominence. CT scan of the head shows generalized atrophy, nonspecific white matter ravi ges. ASSESSMENT: 1. Near syncope, probably secondary to dehydration. 2. Left hand gouty arthritis. 3. Hyperkalemia. 4. Coronary artery disease, status post open heart surgery in the remote past. 5. Noninsulin dependent diabetes. 6. Hyperlipidemia. 7. Renal insufficiency. 8. Peptic ulcer disease. PLAN: We will resume patient's medication. Start her on colchicine. We will give her gentle hydrat ion. Repeat potassium after given dose of Kayexalate has improved, and I will order for carotid Dopp ler if not done within the last year, and we will reevaluated the patient in a.m. Rashad Madden MD cc: [phone] TT: 12/27/2016 15:14:26 la
--- NOTE | 2016-12-27 18:08 | CON ---
DATE: 12/27/2016 REQUESTING PHYSICIAN: Dr. Madden. REASON FOR CONSULTATION: Weakness and near syncope. HISTORY OF PRESENT ILLNESS: This is an 89-year-old woman well known to us from prior followup, who p resents to the Emergency Room in the presence of her son with weakness and near syncope. She was hos pitalized last week because of severe pain. She has advanced gouty arthritis, predominantly involvin g the joints of her fingers and hands. She has been in excruciating pain, has been nauseated and keenan ble to have adequate oral intake. She has known coronary disease and has undergone prior aortic valv e replacement and bypass surgery. She also has a permanent pacemaker, which was interrogated on her last admission and found to be functioning properly with adequate battery life. PAST MEDICAL HISTORY: Notable for diabetes, hypertension, hyperlipidemia, gastroesophageal reflux di sease, arthritis, chronic renal insufficiency. MEDICATIONS: At home include aspirin, Lipitor, Imdur, Requip, Zyloprim, Toprol XL, MiraLax and predn isone. ALLERGIES: She has no reported allergies. SOCIAL HISTORY: She does not smoke or drink. She lives with her family. She is . FAMILY HISTORY: Both parents are from age-related illness. REVIEW OF SYSTEMS: A 10-point review of systems is notable mainly for the problems mentioned above. PHYSICAL EXAMINATION: GENERAL: She is a very elderly woman who appears uncomfortable because of her hand pain. VITAL SIGNS: Her blood pressure is 106/56 with a pulse of 66 with a paced rhythm. Respirations are 14. She is afebrile. HEENT: Temporal wasting noted. NECK: No JVD. CHEST: A few scattered rhonchi heard. HEART: PMI displaced laterally. Soft tones are noted. Systolic murmur is present in left sternal b order. ABDOMEN: Soft, nontender, normoactive bowel sounds. EXTREMITIES: No edema. Marked gouty arthritic changes noted in both hands. PSYCHIATRIC: Normal mood and affect. NEUROLOGIC: No gross motor or sensory deficits appreciable. DIAGNOSTIC DATA: Troponin 1.49. Potassium 5.7. BUN and creatinine are 101 and 2.7. White count 3. 9, hemoglobin and hematocrit 11.1 and 32.7 with a platelet count of 81,000. Electrocardiogram reveal s a ventricular paced rhythm. Chest x-ray reveals cardiomegaly with post-sternotomy changes and a pa cemaker system in place. Lung morgan are clear. IMPRESSION: 1. Near syncope, likely due to volume depletion. 2. Acute on chronic renal insufficiency. 3. Coronary artery disease, status post prior bypass surgery and aortic valve replacement, clinicall y stable at present. 4. Conduction system disease, status post permanent pacemaker implant. Currently stable. 5. Rest of problems as noted. RECOMMENDATIONS: Gentle hydration can be administered. Telemetry monitoring will be continued for n ow. There is no need for pacemaker interrogation as this was recently performed. Analgesic therapy should proceed as tolerated. Conservative care is advised. Thank you for this consultation. I am happy to follow through her hospital course. Cody Garcia MD cc: [id number] TT: 12/27/2016 18:07:24 Confirmation # [id number] Dictation # [id number] kiera
[2016-12-27] MEDS: Insulin Lispro (HUMAlog) HIGH Coverage SC SCH ×2 (18:10→21:39)
--- NOTE | 2016-12-27 22:02 | CARD ---
APPROVED REPORT EKG Measurement Heart [id number] <Conclusion> Atrial sensed, ventricular paced rhythm
--- NOTE | 2016-12-28 07:25 | PN ---
DATE: 12/28/2016 SUBJECTIVE: The patient has no complaints of any chest pain, no shortness of breath. No headaches o r dizziness. She has not been eating well. PHYSICAL EXAMINATION: VITAL SIGNS: Temperature is 98.4, pulse of 62, blood pressure 109/68, respirations 20. GENERAL: The patient comfortable, in no acute distress. HEENT: Anicteric sclerae. Moist mucosa. NECK: No JVD or adenopathy. CARDIAC: S1/S2. No murmurs. No rubs. Regular. RESPIRATORY: Clear to auscultation bilaterally. No wheezes, rales, or rhonchi. Good air entry. ABDOMEN: Bowel sounds are positive, soft, nontender, and nondistended. EXTREMITIES: No edema. Has 1+ pulses. LABS: White count of 3.9, hemoglobin 11.9, creatinine is 2.5. EXTREMITIES 1. [id number] myocardial infarction. 2. Acute kidney injury. 3. Coronary artery disease. 4. Hypertension. 5. Aortic valve replacement. 6. Pacemaker. 7. Diabetes type 2. 8. Dyslipidemia. 9. Osteoarthritis. 10. Gout. 11. Peptic ulcer disease. PLAN: The patient is on IV fluids. She is on aspirin. She is going to continue with colchicine for her gout. She is receiving isosorbide. She is on Lipitor for dyslipidemia. She is on MiraLax for constipation. She is on Requip. She is going to be on steroids. She is on metoprolol. She is fox g to continue with allopurinol. Carotid Dopplers have been ordered. She is on a heart healthy diet. I ordered physical therapy. I am going to see if she qualifies for TCU. She is also going to be s een by Dr. Garcia. Toño Dill MD cc: [id number] TT: 12/28/2016 07:24:54 Confirmation # [id number] Dictation # [id number] mn
--- NOTE | 2016-12-28 07:55 | CP.PCM.PN ---
Subjective - Date & Time of Evaluation Date of Evaluation: 12/28/16 Time of Evaluation: 07:00 - Subjective Subjective: Stable on 2R. No CP or SOB. V/S noted. V. Paced PE: Lungs: clear Cor: S1S2 Abd.: soft Ext.: no edema Neuro: alert Labs noted. Trop 1.31, Cr.= 2.5 Objective - Vital Signs/Intake and Output Vital Signs (last 24 hours): Temp Pulse Resp BP Pulse Ox 98.4 F 62 20 109/68 98 12/28/16 06:00 12/28/16 06:00 12/28/16 06:00 12/28/16 06:00 12/28/16 06:00 Intake and Output: 12/28/16 12/28/16 06:59 18:59 Intake Total 1640 Output Total 0 Balance 1640 - Medications Medications: Current Medications Allopurinol (Zyloprim) 100 mg PO DAILY [facility] Last Admin: 12/27/16 10:19 Dose: 100 mg Aspirin (Aspirin Chewable) 81 mg PO DAILY [facility] Last Admin: 12/27/16 10:10 Dose: 81 mg Atorvastatin Calcium (Lipitor) 20 mg PO DAILY [facility] Last Admin: 12/27/16 10:09 Dose: 20 mg Colchicine (Colocrys) 0.6 mg PO DAILY [facility] Last Admin: 12/27/16 12:19 Dose: 0.6 mg Sodium Chloride (Sodium Chloride 0.45%) 1,000 mls @ 50 mls/hr IV .Q20H [facility] Last Admin: 12/27/16 12:20 Dose: 50 mls/hr Insulin Human Lispro (Humalog High) 0 units SC ACHS [facility] PRN Reason: Protocol Last Admin: 12/27/16 21:39 Dose: Not Given Isosorbide Mononitrate (Imdur) 60 mg PO DAILY [facility] Last Admin: 12/27/16 10:09 Dose: 60 mg Methylprednisolone (Solu-Medrol) 30 mg IV Q12 [facility] Last Admin: 12/27/16 21:40 Dose: 30 mg Metoprolol Succinate (Toprol Xl) 50 mg PO DAILY [facility] Last Admin: 12/27/16 10:12 Dose: 50 mg Oxycodone/Acetaminophen (Percocet 5/325 Mg Tab) 1 tab PO TID [facility] Stop: 12/30/16 10:01 Last Admin: 12/27/16 18:11 Dose: 1 tab Polyethylene Glycol (Miralax) 17 gm PO BID [facility] Last Admin: 12/27/16 18:13 Dose: 17 gm Ropinirole HCl (Requip) 0.25 mg PO BID [facility] Last Admin: 12/27/16 18:13 Dose: 0.25 mg - Labs Labs: 12/27/16 11:02 PT 12.2 Seconds (9.9-11.8) H 12/27/16 00:45 INR 1.13 (0.93-1.08) H 12/27/16 00:45 APTT 22.5 Seconds (23.7-30.8) L 12/27/16 00:45 Assessment and Plan - Assessment and Plan (Free Text) Plan: Assessment: Near Syncope/Dehydration + trops in setting of CKD, doubt acute DC AVR/CABG PPM Diabetes HBP HLD GERD Gouty Artjritis CKD Plan: Await AM labs IVF OOB to chair as robbin. Monitor I/O, labs, sats., Will follow.
[2016-12-28] MEDS: Insulin Lispro (HUMAlog) HIGH Coverage SC SCH ×4 (08:17→21:40)
[2016-12-28] MEDS: Sodium Chloride 0.45% 1,000 ML IV SCH (08:18)
[2016-12-28 08:28] LABS: ALB/GLOB RATIO 1.3 (1.1-1.8); BILIRUBIN,TOTAL 0.6 mg/dL (0.2-1.3); CALCIUM 8.6 mg/dL (8.4-10.5); MAGNESIUM 2.3 mg/dL (1.7-2.2); POTASSIUM 5.1 mmol/L (3.6-5.0); TOTAL PROTEIN 6.4 g/dL (5.8-8.3)
[2016-12-28 08:56] LABS: TROPONIN I 0.85 ng/mL
[2016-12-28] MEDS: POLYETHYLENE GLYCOL 3350 17 GM/Dose PACKET PO SCH ×2 (11:36→18:32)
[2016-12-28] MEDS: Metoprolol Succinate 50 mg XL Tab PO SCH (11:37)
[2016-12-28] MEDS: MethylPREDNISolone 40 mg Vial IV SCH ×2 (11:38→21:36)
[2016-12-28] MEDS: Oxycodone/Acetaminophen 5/325 mg Tab PO SCH ×3 (11:50→18:31)
[2016-12-29] MEDS: Sodium Chloride 0.45% 1,000 ML IV SCH ×2 (04:29→23:53)
[2016-12-29 07:18] LABS: MEAN CELL VOLUME 91.7 fL (80.0-105.0); MEAN CORPUSCULAR HEMOGLOBIN 30.5 pg (25.0-35.0); MEAN CORPUSCULAR HGB CONC 33.2 g/dl (31.0-37.0); MEAN PLATELET VOLUME 11.2 fl (7.0-11.0); WHITE BLOOD COUNT 3.3 10^3/ul (4.5-11.0)
[2016-12-29 07:31] LABS: ALB/GLOB RATIO 1.3 (1.1-1.8); BILIRUBIN,TOTAL 0.4 mg/dL (0.2-1.3); CALCIUM 8.7 mg/dL (8.4-10.5); MAGNESIUM 2.2 mg/dL (1.7-2.2); PHOSPHOROUS 4.9 mg/dL (2.5-4.5); POTASSIUM 5.1 mmol/L (3.6-5.0)
[2016-12-29] MEDS: Insulin Lispro (HUMAlog) HIGH Coverage SC SCH ×4 (08:19→22:34)
--- NOTE | 2016-12-29 08:33 | PN ---
DATE: 12/29/2016 DATE: 12/29/2016 SUBJECTIVE: The patient has no complaints of any chest pain, no shortness of breath, no headaches. PHYSICAL EXAMINATION: VITAL SIGNS: Temperature is 98.5. Pulse is 76. Blood pressure is 110/69, respirations 20. GENERAL: The patient is comfortable, in no acute distress. HEENT: Anicteric sclerae. Moist mucosa. NECK: No JVD or adenopathy. CARDIAC: S1/S2. No murmurs. No rubs. Regular. RESPIRATORY: Clear to auscultation bilaterally. No wheezes, rales, or rhonchi. Good air entry. ABDOMEN: Bowel sounds are positive, soft, nontender, and nondistended. EXTREMITIES: No edema. Has 1+ pulses. ASSESSMENT: 1. Non-ST elevation myocardial infarction. 2. Acute kidney injury. 3. Coronary artery disease. 4. Hypertension. 5. Aortic valve replacement. 6. Pacemaker. 7. Diabetes type 2. 8. Dyslipidemia. 9. Osteoarthritis. 10. Peptic ulcer disease. 11. Gout. PLAN: The patient is currently comfortable. Her abdomen seems mildly distended, was soft. She has been refusing her MiraLax. The patient is on aspirin. She is going to continue with Lipitor for dys lipidemia. She is on oxycodone for pain. The patient is on steroids. We will continue to taper her steroids. The patient has carotid Dopplers that she is not able to do because she cannot lie flat w ith her neck that is flexed. We will repeat her blood work tomorrow. She will most likely need reha b. I did speak to the patient's son yesterday to give him an update on the patient's diagnosis and p mariela of care. Toño Dill MD cc: [id number] TT: 12/29/2016 08:32:47 Confirmation # [id number] Dictation # [id number]
[2016-12-29] MEDS: Oxycodone/Acetaminophen 5/325 mg Tab PO SCH ×3 (09:58→17:44)
[2016-12-29] MEDS: POLYETHYLENE GLYCOL 3350 17 GM/Dose PACKET PO SCH ×2 (10:11→17:44)
--- NOTE | 2016-12-29 12:37 | CP.PCM.CON ---
History of Present Illness - History of Present Illness History of Present Illness: Palliative consult requested by Dr Osvaldo Dill Reason: Gaols of care/advance care planning 89 year old female who presented to ED with weakness and near syncope.She also complains of severe pain in her joints. Family reports appetite/fluid intake over the past several days. PMHx: CKD,DM, HTN, HLd, gastric reflux,gouty arthritis,CAD, s/p aortic valve replacement,s/p agricultural produce packer placement Social History: Non smoker, no alcohol,or drug use. , lives with her sons. Family History: Non contributory. Advance Care Planning: The patient does not have an Advance Directive. Sons affirm she is DNR/DNI. Review of Systems: As per HPI, otherwise unremarkable. Past Patient History - Infectious Disease Hx of Infectious Diseases: None - Tetanus Immunizations Tetanus Immunization: Unknown - Past Social History Smoking Status: Never Smoked - CARDIAC Hx Congestive Heart Failure: Yes Hx Hypertension: Yes - PULMONARY Hx Chronic Obstructive Pulmonary Disease (COPD): Yes - NEUROLOGICAL Hx Neurological Disorder: Yes (restless leg syndrome) - HEENT Hx HEENT Problems: Yes (eyeglasses) - RENAL Hx Chronic Kidney Disease: Yes - ENDOCRINE/METABOLIC Hx Diabetes Mellitus Type 2: Yes - HEMATOLOGICAL/ONCOLOGICAL Hx Blood Disorders: No - INTEGUMENTARY Other/Comment: reddened excoriated buttocks, bilateral lower extremities discolored - MUSCULOSKELETAL/RHEUMATOLOGICAL Hx Falls: No - GASTROINTESTINAL Hx Gastroesophageal Reflux: Yes - GENITOURINARY/GYNECOLOGICAL Hx Genitourinary Disorders: No - PSYCHIATRIC Hx Depression: No Hx Emotional Abuse: No Hx Physical Abuse: No Hx Substance Use: No - SURGICAL HISTORY Hx Open Heart Surgery: Yes (triple by pass) Meds Allergies/Adverse Reactions: Allergies Allergy/AdvReac Type Severity Reaction Status Date / Time No Known Allergies Allergy Verified 12/04/11 15:43 - Medications Medications: Current Medications Albuterol/Ipratropium (Duoneb 3 Mg/0.5 Mg (3 Ml) Ud) 3 ml IH [id number] PRN PRN Reason: Shortness of Breath Allopurinol (Zyloprim) 100 mg PO DAILY [facility] Last Admin: 12/29/16 09:59 Dose: 100 mg Aspirin (Aspirin Chewable) 81 mg PO DAILY [facility] Last Admin: 12/29/16 10:10 Dose: 81 mg Atorvastatin Calcium (Lipitor) 20 mg PO DAILY [facility] Last Admin: 12/29/16 09:58 Dose: 20 mg Colchicine (Colocrys) 0.6 mg PO DAILY [facility] Last Admin: 12/29/16 09:58 Dose: 0.6 mg Sodium Chloride (Sodium Chloride 0.45%) 1,000 mls @ 50 mls/hr IV .Q20H [facility] Last Admin: 12/29/16 04:29 Dose: Not Given Insulin Human Lispro (Humalog High) 0 units SC ACHS [facility] PRN Reason: Protocol Last Admin: 12/29/16 08:19 Dose: 4 units Isosorbide Mononitrate (Imdur) 60 mg PO DAILY [facility] Last Admin: 12/29/16 10:10 Dose: Not Given Metoprolol Succinate (Toprol Xl) 50 mg PO DAILY [facility] Last Admin: 12/28/16 11:37 Dose: 50 mg Oxycodone/Acetaminophen (Percocet 5/325 Mg Tab) 1 tab PO TID [facility] Stop: 12/30/16 10:01 Last Admin: 12/29/16 09:58 Dose: 1 tab Polyethylene Glycol (Miralax) 17 gm PO BID [facility] Last Admin: 12/29/16 10:11 Dose: 17 gm Prednisone (Prednisone Tab) 20 mg PO DAILY [facility] Last Admin: 12/29/16 09:58 Dose: 20 mg Ropinirole HCl (Requip) 0.25 mg PO BID [facility] Last Admin: 12/29/16 09:58 Dose: 0.25 mg Physical Exam - Constitutional Appears: Cachectic, Chronically Ill - Eye Exam Eye Exam: Normal appearance, PERRL - ENT Exam ENT Exam: Mucous Membranes Moist, Normal Oropharynx - Neck Exam Neck exam: Positive for: Normal Inspection - Respiratory Exam Respiratory Exam: Decreased Breath Sounds, NORMAL BREATHING PATTERN - Cardiovascular Exam Cardiovascular Exam: REGULAR RHYTHM, +S1, +S2 - GI/Abdominal Exam GI & Abdominal Exam: Normal Bowel Sounds, Soft - Extremities Exam Extremities exam: Positive for: pedal edema Additional comments: joints swollen/tender both hands, PVD lower extremities - Back Exam Back exam: NORMAL INSPECTION - Neurological Exam Neurological exam: Alert - Skin Skin Exam: Dry, Pallor - Additional Findings Additional findings: Palliative performance scale rating Results - Vital Signs Recent Vital Signs: Last Vital Signs Temp 97.4 F L 12/29/16 11:58 Pulse 68 12/29/16 11:58 Resp 18 12/29/16 11:58 BP 102/61 12/29/16 11:58 Pulse Ox 100 12/29/16 06:00 - Labs Result Diagrams: 12/29/16 06:30 12/29/16 06:30 Labs: Laboratory Results - last 24 hr 12/28/16 12/28/16 12/29/16 16:12 21:40 06:30 WBC 3.3 L RBC 3.38 L Hgb 10.3 L Hct 31.0 L MCV 91.7 MCH 30.5 MCHC 33.2 RDW 15.0 H Plt Count 81 L MPV 11.2 H Sodium Potassium Chloride Carbon Dioxide Anion Gap BUN Creatinine Est GFR ( Amer) Est GFR (Non-Af Amer) POC Glucose (mg/dL) 224 H 195 H Random Glucose Calcium Phosphorus Magnesium Total Bilirubin AST ALT Alkaline Phosphatase Total Protein Albumin Globulin Albumin/Globulin Ratio 12/29/16 12/29/16 12/29/16 06:30 07:29 11:10 WBC RBC Hgb Hct MCV MCH MCHC RDW Plt Count MPV Sodium 134 Potassium 5.1 H Chloride 103 Carbon Dioxide 21 Anion Gap 15 BUN 95 H Creatinine 2.1 H Est GFR ( Amer) 27 Est GFR (Non-Af Amer) 22 POC Glucose (mg/dL) 214 H 161 H Random Glucose 191 H Calcium 8.7 Phosphorus 4.9 H Magnesium 2.2 Total Bilirubin 0.4 AST 31 ALT 46 Alkaline Phosphatase 64 Total Protein 6.0 Albumin 3.4 Globulin 2.6 Albumin/Globulin Ratio 1.3 Assessment & Plan - Assessment and Plan (Free Text) Assessment: 89 year old female admitted with near syncope, volume depletion, renal insufficiency, intractable pain due to gouty arthritis. The patient is weak and extremely lethargic. She is primarily bed bound. Her appetite is poor. She needs assist with all ADL's I met with patient's son Farrukh. He states that his mother does not have an Advance Directive. When asked specifically about resuscitation with CPR and intubation,he stated that she wished to be DNR/DNI. POLST explained to son. He states that he is willing to complete a POLST with me before his mother is discharged. Family had expressed an interest in comfort care. Presently patient is very weak and unable to participate with physical therapy. Son hopes for some improvement in her condition but also recognizes that rehab may not be realistic goal. I spoke to son about option for comfort care. Family will consider this option if patient is unable to participle in rehab therapy. Time spent in discussion with son regarding future goals of care and advance care planning, 30 minutes, Plan: DNR/DNI. Will assist family with establishing future goals of care
[2016-12-29] MEDS: Metoprolol Succinate 50 mg XL Tab PO SCH (16:38)
--- NOTE | 2016-12-29 17:09 | RAD ---
HISTORY: abd distention COMPARISON: No prior. FINDINGS: BOWEL: Limited examination. There is gas seen in multiple distended small bowel loops. No clear colonic distention. The findings may represent mechanical small bowel obstruction. Followup is advised. No true upright film is provided and air-fluid levels cannot be assessed. No gross evidence of free intraperitoneal air. BONES: Normal. OTHER FINDINGS: None. IMPRESSION: Possible mechanical small bowel obstruction versus ileus. Nonspecific. Followup advised.
[2016-12-30] MEDS: Albuterol-Ipratrop 3 mg / 0.5 (3 ml) UD IH PRN (04:23)
--- NOTE | 2016-12-30 05:45 | CP.PCM.CON ---
History of Present Illness - History of Present Illness History of Present Illness: Surgery: Dr. Ventura CC: constipation Reason for consult: possible SBO HPI: Patient is an 89 y/o female who is admitted for a near syncopal episode and poor po intake. Patient is a poor historian, history obtained from prior documentation. Patient was noted to start having abdominal distention upon admission. Since admission patient has not had a report BM and per H&P patient has not had BM in about 1 week. She denies n/v/f/c. She denies abdominal pain or flatus. PMH: CHF CAD, DM, HTN, gouty arthritis PSH: CABG, aortic valve replacement, pacemaker Social: primary caregiver is son Review of Systems - Review of Systems Systems not reviewed;Unavailable: Dementia Past Patient History - Infectious Disease Hx of Infectious Diseases: None - Tetanus Immunizations Tetanus Immunization: Unknown - Past Social History Smoking Status: Never Smoked - CARDIAC Hx Congestive Heart Failure: Yes Hx Hypertension: Yes - PULMONARY Hx Chronic Obstructive Pulmonary Disease (COPD): Yes - NEUROLOGICAL Hx Neurological Disorder: Yes (restless leg syndrome) - HEENT Hx HEENT Problems: Yes (eyeglasses) - RENAL Hx Chronic Kidney Disease: Yes - ENDOCRINE/METABOLIC Hx Diabetes Mellitus Type 2: Yes - HEMATOLOGICAL/ONCOLOGICAL Hx Blood Disorders: No - INTEGUMENTARY Other/Comment: reddened excoriated buttocks, bilateral lower extremities discolored - MUSCULOSKELETAL/RHEUMATOLOGICAL Hx Falls: No - GASTROINTESTINAL Hx Gastroesophageal Reflux: Yes - GENITOURINARY/GYNECOLOGICAL Hx Genitourinary Disorders: No - PSYCHIATRIC Hx Depression: No Hx Emotional Abuse: No Hx Physical Abuse: No Hx Substance Use: No - SURGICAL HISTORY Hx Open Heart Surgery: Yes (triple by pass) Meds Allergies/Adverse Reactions: Allergies Allergy/AdvReac Type Severity Reaction Status Date / Time No Known Allergies Allergy Verified 12/04/11 15:43 - Medications Medications: Current Medications Albuterol/Ipratropium (Duoneb 3 Mg/0.5 Mg (3 Ml) Ud) 3 ml IH [id number] PRN PRN Reason: Shortness of Breath Last Admin: 12/30/16 04:23 Dose: 3 ml Allopurinol (Zyloprim) 100 mg PO DAILY [facility] Last Admin: 12/29/16 09:59 Dose: 100 mg Aspirin (Aspirin Chewable) 81 mg PO DAILY [facility] Last Admin: 12/29/16 10:10 Dose: 81 mg Atorvastatin Calcium (Lipitor) 20 mg PO DAILY [facility] Last Admin: 12/29/16 09:58 Dose: 20 mg Colchicine (Colocrys) 0.6 mg PO DAILY [facility] Last Admin: 12/29/16 09:58 Dose: 0.6 mg Sodium Chloride (Sodium Chloride 0.45%) 1,000 mls @ 50 mls/hr IV .Q20H [facility] Last Admin: 12/29/16 23:53 Dose: 50 mls/hr Insulin Human Lispro (Humalog High) 0 units SC ACHS [facility] PRN Reason: Protocol Last Admin: 12/29/16 22:34 Dose: Not Given Isosorbide Mononitrate (Imdur) 60 mg PO DAILY [facility] Last Admin: 12/29/16 10:10 Dose: Not Given Metoprolol Succinate (Toprol Xl) 50 mg PO DAILY [facility] Last Admin: 12/29/16 16:38 Dose: Not Given Oxycodone/Acetaminophen (Percocet 5/325 Mg Tab) 1 tab PO TID [facility] Stop: 12/30/16 10:01 Last Admin: 12/29/16 17:44 Dose: Not Given Polyethylene Glycol (Miralax) 17 gm PO BID [facility] Last Admin: 12/29/16 17:44 Dose: Not Given Prednisone (Prednisone Tab) 20 mg PO DAILY [facility] Last Admin: 12/29/16 09:58 Dose: 20 mg Ropinirole HCl (Requip) 0.25 mg PO BID [facility] Last Admin: 12/29/16 17:43 Dose: 0.25 mg Physical Exam - Constitutional Appears: Non-toxic, Cachectic, Chronically Ill - Head Exam Head Exam: ATRAUMATIC, NORMOCEPHALIC - ENT Exam ENT Exam: Mucous Membranes Dry - Respiratory Exam Respiratory Exam: NORMAL BREATHING PATTERN. absent: Respiratory Distress - Cardiovascular Exam Cardiovascular Exam: REGULAR RHYTHM. absent: Tachycardia - GI/Abdominal Exam GI & Abdominal Exam: Distended, Soft. absent: Guarding, Hernia, Rebound, Rigid , Tenderness - Neurological Exam Neurological exam: Alert - Skin Skin Exam: Dry, Warm Results - Vital Signs Recent Vital Signs: Last Vital Signs Temp 98.0 F 12/30/16 00:01 Pulse 79 12/30/16 00:01 Resp 18 12/30/16 00:01 BP 113/63 12/30/16 00:01 Pulse Ox 99 12/29/16 18:00 - Labs Result Diagrams: 12/29/16 06:30 12/29/16 06:30 Labs: Laboratory Results - last 24 hr 12/29/16 12/29/16 12/29/16 06:30 06:30 07:29 WBC 3.3 L RBC 3.38 L Hgb 10.3 L Hct 31.0 L MCV 91.7 MCH 30.5 MCHC 33.2 RDW 15.0 H Plt Count 81 L MPV 11.2 H Sodium 134 Potassium 5.1 H Chloride 103 Carbon Dioxide 21 Anion Gap 15 BUN 95 H Creatinine 2.1 H Est GFR ( Amer) 27 Est GFR (Non-Af Amer) 22 POC Glucose (mg/dL) 214 H Random Glucose 191 H Calcium 8.7 Phosphorus 4.9 H Magnesium 2.2 Total Bilirubin 0.4 AST 31 ALT 46 Alkaline Phosphatase 64 Total Protein 6.0 Albumin 3.4 Globulin 2.6 Albumin/Globulin Ratio 1.3 12/29/16 12/29/16 12/29/16 11:10 16:06 21:38 WBC RBC Hgb Hct MCV MCH MCHC RDW Plt Count MPV Sodium Potassium Chloride Carbon Dioxide Anion Gap BUN Creatinine Est GFR ( Amer) Est GFR (Non-Af Amer) POC Glucose (mg/dL) 161 H 179 H 135 H Random Glucose Calcium Phosphorus Magnesium Total Bilirubin AST ALT Alkaline Phosphatase Total Protein Albumin Globulin Albumin/Globulin Ratio Assessment & Plan - Assessment and Plan (Free Text) Assessment: 89 y/o female w/ abdominal distention most likely 2/2 constipation Plan: -cont gentle IVF hydration -electrolyte repletion as needed -glycerine suppository, if unsuccessful Dulcolax suppository possible enema -may need GI eval for chronic constipation -patient w/o n/v, will hold off on NGT placement -no acute surgical intervention at this time -d/w Dr. Lorenzo Olsen PGY1
[2016-12-30] MEDS: Insulin Lispro (HUMAlog) HIGH Coverage SC SCH ×4 (08:21→21:43)
[2016-12-30 08:24] LABS: HEMATOCRIT 31.9 % (36.0-48.0); MEAN CELL VOLUME 91.7 fL (80.0-105.0); MEAN CORPUSCULAR HEMOGLOBIN 29.9 pg (25.0-35.0); MEAN CORPUSCULAR HGB CONC 32.6 g/dl (31.0-37.0); MEAN PLATELET VOLUME 10.5 fl (7.0-11.0); WHITE BLOOD COUNT 4.8 10^3/ul (4.5-11.0)
[2016-12-30 08:40] LABS: ALB/GLOB RATIO 1.4 (1.1-1.8); BILIRUBIN,TOTAL 0.4 mg/dL (0.2-1.3); CALCIUM 8.6 mg/dL (8.4-10.5); POTASSIUM 4.5 mmol/L (3.6-5.0); TOTAL PROTEIN 5.8 g/dL (5.8-8.3)
--- NOTE | 2016-12-30 09:35 | PN ---
DATE: 12/30/2016 SUBJECTIVE: The patient has no complaints of any chest pain. She feels weak and tired. She has not been able to eat. PHYSICAL EXAMINATION: VITAL SIGNS: Temperature is 97.8, pulse is 78, blood pressure 121/75, respirations 20. GENERAL: The patient is comfortable, in no acute distress. HEENT: Anicteric sclerae. Moist mucosa. NECK: No JVD or adenopathy. CARDIAC: S1/S2. No murmurs. No rubs. Regular. RESPIRATORY: Clear to auscultation bilaterally. No wheezes, rales, or rhonchi. Good air entry. ABDOMEN: Bowel sounds are positive, soft, nontender, and nondistended. EXTREMITIES: No edema. Has 1+ pulses. LABS: White count of 4.8, hemoglobin 10.4, creatinine is 2.2. The abdominal x-ray done shows possible mechanical small-bowel obstruction. ASSESSMENT: 1. Possible small-bowel obstruction. 2. Ffr-ES-rknugeygc myocardial infarction. 3. Acute kidney injury. 4. Coronary artery disease. 5. Hypertension. 6. Aortic valve placement. 7. Pacemaker. 8. Diabetes, type 2. 9. Dyslipidemia. 10. Osteoarthritis. 11. Peptic ulcer disease. 12. Gout. PLAN: The patient is on IV fluids. The patient's creatinine is probably at baseline. The patient i s on colchicine. She is going to continue with MiraLax for constipation. The patient is on Percocet . She is being followed by surgery. The patient is on allopurinol. She is going to be on prednison e. The patient is continuing on Percocet for pain. She is n.p.o. I did speak to the patient's son this morning to give him an update on the patient's diagnosis and plan of care. Toño Dill MD cc: [id number] TT: 12/30/2016 09:34:35 Confirmation # [id number] Dictation # [id number] mn
[2016-12-30] MEDS: Oxycodone/Acetaminophen 5/325 mg Tab PO SCH (09:47)
[2016-12-30] MEDS: POLYETHYLENE GLYCOL 3350 17 GM/Dose PACKET PO SCH ×2 (09:47→17:33)
[2016-12-30] MEDS: Metoprolol Succinate 50 mg XL Tab PO SCH (09:48)
--- NOTE | 2016-12-30 10:39 | PN ---
DATE: 12/30/2016 SUBJECTIVE: The patient is seen sitting in bed on telemetry. She is somnolent, but arousable. She denies any significant pain at the present time. She had previously been seen for some abdominal dis tention and was felt to be constipated. She is seen in the presence of her son. CURRENT MEDICATIONS: Include aspirin, colchicine, DuoNeb inhaler, Imdur 60 mg daily, Lipitor, MiraLa x, prednisone 20 mg daily, Requip 0.25 mg b.i.d., IV fluids, Topral XL 50 mg daily, and allopurinol. OBJECTIVE: GENERAL: She is a very elderly woman who appears comfortable at rest. VITAL SIGNS: Her blood pressure is 120/76 with a pulse of 76 and ventricular paced, respirations are 14. She is afebrile. HEENT: No JVD. CHEST: Bilateral scattered rhonchi. HEART: A systolic murmur is present at the left sternal border. ABDOMEN: Soft, distended. Bowel sounds are present. Mild bilateral lower quadrant tenderness is se en. EXTREMITIES: No edema. DIAGNOSTIC DATA: Potassium 4.5, BUN and creatinine are 98 and 2.2, hemoglobin and hematocrit 10.4 an d 31.9 with a white count of 4.8, platelet count of 77,000. IMPRESSION: 1. Recent near syncope, likely due to volume depletion. 2. Chronic thrombocytopenia. 3. Coronary artery disease, status post bypass surgery and aortic valve replacement, stable at prese nt. 4. Conduction system disease, status post permanent pacemaker implant. 5. Acute on chronic renal insufficiency, mildly improved. RECOMMENDATIONS: Continued conservative management appears most reasonable at this time. Medical th erapy for her heart disease will continue. Physical therapy should be initiated as tolerated. We wi ll continue to follow along and make further recommendations as appropriate. DNR order is in place. Cody Garcia MD cc: [id number] TT: 12/30/2016 10:38:48 Confirmation # [id number] Dictation # [id number] tn
--- NOTE | 2016-12-30 12:19 | CP.PCM.PN ---
Subjective - Date & Time of Evaluation Date of Evaluation: 12/30/16 Time of Evaluation: 10:00 - Subjective Subjective: Lethargic, rouses when spoken to. She is weak. Denies pain. Objective - Vital Signs/Intake and Output Vital Signs (last 24 hours): Temp Pulse Resp BP Pulse Ox 97.8 F 75 20 121/75 96 12/30/16 06:00 12/30/16 09:48 12/30/16 06:00 12/30/16 09:48 12/30/16 06:00 Intake and Output: 12/30/16 12/30/16 06:59 18:59 Intake Total 600 Output Total 100 Balance 500 - Medications Medications: Current Medications Albuterol/Ipratropium (Duoneb 3 Mg/0.5 Mg (3 Ml) Ud) 3 ml IH [id number] PRN PRN Reason: Shortness of Breath Last Admin: 12/30/16 04:23 Dose: 3 ml Allopurinol (Zyloprim) 100 mg PO DAILY [facility] Last Admin: 12/30/16 09:49 Dose: 100 mg Aspirin (Aspirin Chewable) 81 mg PO DAILY [facility] Last Admin: 12/30/16 09:46 Dose: 81 mg Atorvastatin Calcium (Lipitor) 20 mg PO DAILY [facility] Last Admin: 12/30/16 09:47 Dose: 20 mg Colchicine (Colocrys) 0.6 mg PO DAILY [facility] Last Admin: 12/30/16 09:46 Dose: 0.6 mg Sodium Chloride (Sodium Chloride 0.45%) 1,000 mls @ 50 mls/hr IV .Q20H [facility] Last Admin: 12/29/16 23:53 Dose: 50 mls/hr Insulin Human Lispro (Humalog High) 0 units SC ACHS [facility] PRN Reason: Protocol Last Admin: 12/30/16 08:21 Dose: Not Given Isosorbide Mononitrate (Imdur) 60 mg PO DAILY [facility] Last Admin: 12/30/16 09:47 Dose: 60 mg Metoprolol Succinate (Toprol Xl) 50 mg PO DAILY [facility] Last Admin: 12/30/16 09:48 Dose: 50 mg Polyethylene Glycol (Miralax) 17 gm PO BID [facility] Last Admin: 12/30/16 09:47 Dose: 17 gm Prednisone (Prednisone Tab) 20 mg PO DAILY [facility] Last Admin: 12/30/16 09:48 Dose: 20 mg Ropinirole HCl (Requip) 0.25 mg PO BID [facility] Last Admin: 12/30/16 09:48 Dose: 0.25 mg - Labs Labs: 12/30/16 08:00 12/30/16 08:00 PT 12.2 Seconds (9.9-11.8) H 12/27/16 00:45 INR 1.13 (0.93-1.08) H 12/27/16 00:45 APTT 22.5 Seconds (23.7-30.8) L 12/27/16 00:45 - Constitutional Appears: Cachectic, Chronically Ill - Eye Exam Eye Exam: Normal appearance, PERRL - ENT Exam ENT Exam: Mucous Membranes Moist - Respiratory Exam Respiratory Exam: Decreased Breath Sounds, NORMAL BREATHING PATTERN - Cardiovascular Exam Cardiovascular Exam: REGULAR RHYTHM, +S1, +S2 - GI/Abdominal Exam GI & Abdominal Exam: Distended, Soft, Normal Bowel Sounds - Skin Skin Exam: Dry, Pallor Assessment and Plan - Assessment and Plan (Free Text) Assessment: 89 year old admitted near syncope, pain secondary to gouty arthritis, CKD, deconditioing. Imaging shows possible SBO vs ileus. The patient is NPO. She is somnolent, unable to engage in conversation. She is bed bound and needs assistances with all ADL's. Patient's sons Kane and Christian shielsd expressed interest in hospice care for their mother. Hospice services explained in detail Questions answered. Family met with [facility] health outcomes liaison. Family has agreed to hospice services upon discharge to home. Time spet with family in goals of care discussion, hospice services and end of life counseling, 45 minutes Plan: Hospice referral End of life counseling
[2016-12-30] MEDS: Sodium Chloride 0.45% 1,000 ML IV SCH (20:29)
[2016-12-31] MEDS: Insulin Lispro (HUMAlog) HIGH Coverage SC SCH ×4 (08:13→22:00)
--- NOTE | 2016-12-31 10:13 | PN ---
DATE: 12/31/2016 SUBJECTIVE: The patient has no complaints of any chest pain, no shortness of breath, no headaches or dizziness. The patient did have 2 bowel movements overnight. PHYSICAL EXAMINATION: VITAL SIGNS: Temperature is 97.8, pulse is 70, blood pressure 102/62, respirations 20. GENERAL: The patient is comfortable, in no acute distress. HEENT: Anicteric sclerae. Moist mucosa. NECK: No JVD or adenopathy. CARDIAC: S1/S2. No murmurs. No rubs. Regular. RESPIRATORY: Clear to auscultation bilaterally. No wheezes, rales, or rhonchi. Good air entry. ABDOMEN: Bowel sounds are positive, soft, nontender, and nondistended. EXTREMITIES: No edema. Has 1+ pulses. LABS: Creatinine is 2.2. ASSESSMENT: 1. Small bowel obstruction, improved. 2. on-ST elevation myocardial infarction. 3. Acute kidney injury. 4. Coronary artery disease. 5. Hypertension. 6. Aortic valve replacement. 7. Pacemaker. 8. Diabetes type 2. 9. Dyslipidemia. 10. Osteoarthritis. 11. Peptic ulcer disease. 12. Gout. PLAN: The patient is currently comfortable. The patient is on IV fluids. The patient is going to b e on aspirin. She is going to continue with colchicine. She is on Lipitor for dyslipidemia. She is on prednisone for her pain. She is on allopurinol. She is going to continue with Requip. She is o n isosorbide. I will start her on a clear liquid diet. Will repeat her x-ray. Toño Dill MD cc: [id number] TT: 12/31/2016 10:12:19 Confirmation # [id number] Dictation # [id number] ashley
--- NOTE | 2016-12-31 10:23 | CP.PCM.PN ---
Subjective - Date & Time of Evaluation Date of Evaluation: 12/31/16 Time of Evaluation: 10:00 - Subjective Subjective: More alert today. States he is hungry. Objective - Vital Signs/Intake and Output Vital Signs (last 24 hours): Temp Pulse Resp BP Pulse Ox 97.8 F 70 20 102/62 97 12/31/16 06:00 12/31/16 06:00 12/31/16 06:00 12/31/16 06:00 12/31/16 06:00 Intake and Output: 12/31/16 12/31/16 06:59 18:59 Intake Total 600 Output Total 900 Balance -300 - Medications Medications: Current Medications Albuterol/Ipratropium (Duoneb 3 Mg/0.5 Mg (3 Ml) Ud) 3 ml IH [id number] PRN PRN Reason: Shortness of Breath Last Admin: 12/30/16 04:23 Dose: 3 ml Allopurinol (Zyloprim) 100 mg PO DAILY [facility] Last Admin: 12/30/16 09:49 Dose: 100 mg Aspirin (Aspirin Chewable) 81 mg PO DAILY [facility] Last Admin: 12/30/16 09:46 Dose: 81 mg Atorvastatin Calcium (Lipitor) 20 mg PO DAILY [facility] Last Admin: 12/30/16 09:47 Dose: 20 mg Colchicine (Colocrys) 0.6 mg PO DAILY [facility] Last Admin: 12/30/16 09:46 Dose: 0.6 mg Sodium Chloride (Sodium Chloride 0.45%) 1,000 mls @ 50 mls/hr IV .Q20H [facility] Last Admin: 12/30/16 20:29 Dose: Not Given Insulin Human Lispro (Humalog High) 0 units SC ACHS [facility] PRN Reason: Protocol Last Admin: 12/31/16 08:13 Dose: Not Given Isosorbide Mononitrate (Imdur) 60 mg PO DAILY [facility] Last Admin: 12/30/16 09:47 Dose: 60 mg Metoprolol Succinate (Toprol Xl) 50 mg PO DAILY [facility] Last Admin: 12/30/16 09:48 Dose: 50 mg Polyethylene Glycol (Miralax) 17 gm PO BID [facility] Last Admin: 12/30/16 17:33 Dose: 17 gm Prednisone (Prednisone Tab) 20 mg PO DAILY [facility] Last Admin: 12/30/16 09:48 Dose: 20 mg Ropinirole HCl (Requip) 0.25 mg PO BID [facility] Last Admin: 12/30/16 17:33 Dose: 0.25 mg - Labs Labs: 12/30/16 08:00 12/30/16 08:00 PT 12.2 Seconds (9.9-11.8) H 12/27/16 00:45 INR 1.13 (0.93-1.08) H 12/27/16 00:45 APTT 22.5 Seconds (23.7-30.8) L 12/27/16 00:45 - Constitutional Appears: Chronically Ill - Eye Exam Eye Exam: Normal appearance, PERRL - ENT Exam ENT Exam: Mucous Membranes Moist - Respiratory Exam Respiratory Exam: Clear to Ausculation Bilateral, NORMAL BREATHING PATTERN - Cardiovascular Exam Cardiovascular Exam: REGULAR RHYTHM, +S1, +S2 - GI/Abdominal Exam GI & Abdominal Exam: Soft, Hypoactive Bowel Sounds Additional comments: soft - Extremities Exam Additional comments: tenderness/swelling of joints in both hands - Neurological Exam Neurological Exam: Alert - Skin Skin Exam: Dry, Pallor Assessment and Plan - Assessment and Plan (Free Text) Assessment: 89 year old female admitted with weakness, deconditioning, pain secondary to gouty arthritis. Patient had a large BM yesterday. She denies abdominal pain, nausea or vomiting. She is asking for food. Patient's daughter in law at bedside.Daughter expressed concerns about hospice care.Hospice services reviewed. Question's answered. Psychosocial support given. End of life counseling, 20 minutes. Plan: Advance care planning
[2016-12-31] MEDS: POLYETHYLENE GLYCOL 3350 17 GM/Dose PACKET PO SCH ×2 (10:30→17:47)
[2016-12-31] MEDS: Metoprolol Succinate 50 mg XL Tab PO SCH (10:31)
--- NOTE | 2016-12-31 10:46 | CP.PCM.PN ---
Subjective - Date & Time of Evaluation Date of Evaluation: 12/31/16 Time of Evaluation: 10:43 - Subjective Subjective: Surgery: Dr. Ventura Patient with 2 BMs yesterday and 1 BM the day before. Denies n/v/f/c. Reports appetite. Per nursing no acute events. Objective - Vital Signs/Intake and Output Vital Signs (last 24 hours): Temp Pulse Resp BP Pulse Ox 97.8 F 82 20 102/62 97 12/31/16 06:00 12/31/16 10:31 12/31/16 06:00 12/31/16 10:31 12/31/16 06:00 Intake and Output: 12/31/16 12/31/16 06:59 18:59 Intake Total 600 Output Total 900 Balance -300 - Medications Medications: Current Medications Albuterol/Ipratropium (Duoneb 3 Mg/0.5 Mg (3 Ml) Ud) 3 ml IH [id number] PRN PRN Reason: Shortness of Breath Last Admin: 12/30/16 04:23 Dose: 3 ml Allopurinol (Zyloprim) 100 mg PO DAILY [facility] Last Admin: 12/31/16 10:32 Dose: 100 mg Aspirin (Aspirin Chewable) 81 mg PO DAILY [facility] Last Admin: 12/31/16 10:31 Dose: 81 mg Atorvastatin Calcium (Lipitor) 20 mg PO DAILY [facility] Last Admin: 12/31/16 10:32 Dose: 20 mg Colchicine (Colocrys) 0.6 mg PO DAILY [facility] Last Admin: 12/31/16 10:32 Dose: 0.6 mg Sodium Chloride (Sodium Chloride 0.45%) 1,000 mls @ 50 mls/hr IV .Q20H [facility] Last Admin: 12/30/16 20:29 Dose: Not Given Insulin Human Lispro (Humalog High) 0 units SC ACHS [facility] PRN Reason: Protocol Last Admin: 12/31/16 08:13 Dose: Not Given Isosorbide Mononitrate (Imdur) 60 mg PO DAILY [facility] Last Admin: 12/31/16 10:32 Dose: 60 mg Metoprolol Succinate (Toprol Xl) 50 mg PO DAILY [facility] Last Admin: 12/31/16 10:31 Dose: 50 mg Polyethylene Glycol (Miralax) 17 gm PO BID [facility] Last Admin: 12/31/16 10:30 Dose: 17 gm Prednisone (Prednisone Tab) 20 mg PO DAILY [facility] Last Admin: 12/31/16 10:32 Dose: 20 mg Ropinirole HCl (Requip) 0.25 mg PO BID [facility] Last Admin: 12/31/16 10:32 Dose: 0.25 mg - Labs Labs: 12/30/16 08:00 12/30/16 08:00 PT 12.2 Seconds (9.9-11.8) H 12/27/16 00:45 INR 1.13 (0.93-1.08) H 12/27/16 00:45 APTT 22.5 Seconds (23.7-30.8) L 12/27/16 00:45 - Constitutional Appears: Cachectic, Chronically Ill - Head Exam Head Exam: ATRAUMATIC, NORMOCEPHALIC - Eye Exam Eye Exam: EOMI - ENT Exam ENT Exam: Mucous Membranes Dry - Respiratory Exam Respiratory Exam: NORMAL BREATHING PATTERN. absent: Respiratory Distress - GI/Abdominal Exam GI & Abdominal Exam: Soft. absent: Distended, Guarding, Rigid, Tenderness, Rebound - Extremities Exam Extremities Exam: absent: Calf Tenderness - Skin Skin Exam: Dry, Warm Assessment and Plan - Assessment and Plan (Free Text) Assessment: 89 y/o female w/ constipation Plan: -cont home miralax -glycerine supp. prn constipation -ok for diet, rec high fiber -encourage fluid intake to prevent dehydration -electrolyte repletion prn -no further surgical recs at this time AKWhite PGY1
--- NOTE | 2016-12-31 13:57 | RAD ---
HISTORY: bowel obstruction COMPARISON: 12/29/2016 FINDINGS: BOWEL: There is interval decrease in size of dilated gas-filled bowel loops. BONES: There is severe levoscoliosis in the lumbar spine and advanced multilevel degenerative disc disease. OTHER FINDINGS: There are multiple phleboliths in the pelvis. IMPRESSION: Interval decrease in size of dilated gas-filled bowel loops.
[2017-01-01] MEDS: Insulin Lispro (HUMAlog) HIGH Coverage SC SCH ×4 (08:15→22:15)
[2017-01-01] MEDS: Metoprolol Succinate 50 mg XL Tab PO SCH (09:44)
[2017-01-01] MEDS: POLYETHYLENE GLYCOL 3350 17 GM/Dose PACKET PO SCH ×2 (09:46→18:10)
--- NOTE | 2017-01-01 10:13 | CP.PCM.PN ---
Subjective - Date & Time of Evaluation Date of Evaluation: 01/01/17 Time of Evaluation: 06:30 - Subjective Subjective: Jose G Cortes D.O. PGY-1, General Surgery Progress Note: Dr. Lorenzo Ramirez. 89 year old female being seen for issues with constipation. Patient was seen and examined at bedside with her family present. Patient at this time is feeling better, is somewhat weak but did have two bowel movements yesterday and during the middle of the interview she mentions that she actually needs to go and to please call the nurse. No other complaints elicited. No overnight events. Objective - Vital Signs/Intake and Output Vital Signs (last 24 hours): Temp Pulse Resp BP Pulse Ox 97.4 F L 93 H 22 113/74 98 01/01/17 08:23 01/01/17 08:23 01/01/17 08:23 01/01/17 09:44 01/01/17 08:23 Intake and Output: 01/01/17 01/01/17 06:59 18:59 Intake Total 1620 Balance 1620 - Medications Medications: Current Medications Albuterol/Ipratropium (Duoneb 3 Mg/0.5 Mg (3 Ml) Ud) 3 ml IH [id number] PRN PRN Reason: Shortness of Breath Last Admin: 12/30/16 04:23 Dose: 3 ml Allopurinol (Zyloprim) 100 mg PO DAILY [facility] Last Admin: 01/01/17 09:45 Dose: 100 mg Aspirin (Aspirin Chewable) 81 mg PO DAILY [facility] Last Admin: 01/01/17 09:45 Dose: 81 mg Atorvastatin Calcium (Lipitor) 20 mg PO DAILY [facility] Last Admin: 01/01/17 09:45 Dose: 20 mg Colchicine (Colocrys) 0.6 mg PO DAILY [facility] Last Admin: 01/01/17 09:46 Dose: 0.6 mg Sodium Chloride (Sodium Chloride 0.45%) 1,000 mls @ 50 mls/hr IV .Q20H [facility] Last Admin: 12/30/16 20:29 Dose: Not Given Insulin Human Lispro (Humalog High) 0 units SC ACHS [facility] PRN Reason: Protocol Last Admin: 01/01/17 08:15 Dose: Not Given Isosorbide Mononitrate (Imdur) 60 mg PO DAILY [facility] Last Admin: 01/01/17 09:49 Dose: 60 mg Metoprolol Succinate (Toprol Xl) 50 mg PO DAILY [facility] Last Admin: 01/01/17 09:44 Dose: 50 mg Polyethylene Glycol (Miralax) 17 gm PO BID [facility] Last Admin: 01/01/17 09:46 Dose: 17 gm Prednisone (Prednisone Tab) 20 mg PO DAILY [facility] Last Admin: 01/01/17 09:45 Dose: 20 mg Ropinirole HCl (Requip) 0.25 mg PO BID [facility] Last Admin: 01/01/17 09:46 Dose: 0.25 mg - Labs Labs: 12/30/16 08:00 12/30/16 08:00 PT 12.2 Seconds (9.9-11.8) H 12/27/16 00:45 INR 1.13 (0.93-1.08) H 12/27/16 00:45 APTT 22.5 Seconds (23.7-30.8) L 12/27/16 00:45 - Constitutional Appears: Non-toxic, Cachectic - Head Exam Head Exam: NORMOCEPHALIC - Eye Exam Eye Exam: EOMI - ENT Exam ENT Exam: Mucous Membranes Moist - Respiratory Exam Respiratory Exam: absent: Accessory Muscle Use, Respiratory Distress - GI/Abdominal Exam GI & Abdominal Exam: Soft, Normal Bowel Sounds. absent: Distended, Firm, Guarding, Tenderness - Extremities Exam Extremities Exam: absent: Calf Tenderness - Skin Skin Exam: Dry, Warm Assessment and Plan - Assessment and Plan (Free Text) Assessment: 89 year old female being seen for issues with constipation. Plan: Cont miralax BID Discussed with family at bedside Recommend high fiber diet and proper hydration at all times No other surgical recommendations at this time Will discuss with attending physician. Thank you for the pleasure of participating in the care of this patient.
[2017-01-02] MEDS: Insulin Lispro (HUMAlog) HIGH Coverage SC SCH ×4 (08:51→21:32)
[2017-01-02] MEDS: POLYETHYLENE GLYCOL 3350 17 GM/Dose PACKET PO SCH ×2 (10:29→17:26)
[2017-01-02] MEDS: Metoprolol Succinate 50 mg XL Tab PO SCH (10:30)
[2017-01-03] MEDS: Albuterol-Ipratrop 3 mg / 0.5 (3 ml) UD IH PRN (07:29)
[2017-01-03] MEDS: Insulin Lispro (HUMAlog) HIGH Coverage SC SCH ×4 (08:30→22:09)
--- NOTE | 2017-01-03 09:25 | PN ---
DATE: 01/01/2017 HISTORY OF PRESENT ILLNESS: The patient is an 89-year-old female. Brought to the ED. She was not f eeling well. She was found to have small bowel obstruction. Managed conservatively. Small bowel ob struction improving. She passed out at home. Currently, oriented. Currently, awake, not very alert . She also has history of diabetes mellitus type 2, controlled on current medication, history of ost eoarthritis. No current issues. Also presented with acute renal failure on admission. She also has pancytopenia with low white count of 3.9, platelet count of 80,000 and hemoglobin of 10.3 g/dL. Cur rently, no issues. Not able to ambulate, is sitting on the chair, out of bed. PAST MEDICAL HISTORY: Hypertension, coronary artery disease, aortic valve replacement, pacemaker minor cement, non-insulin dependent diabetes mellitus, hyperlipidemia, osteoarthritis, chronic kidney disea se stage III. SOCIAL HISTORY: Lives at home with daughter and son. PERSONAL HISTORY: No history of smoking, drinking, alcohol abuse. FAMILY HISTORY: Noncontributory. ALLERGIES: No known drug allergies. HOME MEDICATIONS: Metoprolol 25 mg daily, prednisone 20 mg daily, allopurinol 1 tablet daily, Requip 0.25 mg twice a day, Imdur 60 mg daily, Lipitor 20 mg daily, aspirin 81 mg daily, Percocet p.r.n. an d multivitamin. REVIEW OF SYSTEMS: As per HPI. Rest of 12-point reviewed and negative. PHYSICAL EXAMINATION: GENERAL: Comfortable in bed, no acute distress. She is drowsy, but arousable, not very communicativ e. VITAL SIGNS: Afebrile, temperature 98.7, heart rate is 80 per minute, blood pressure 105/56. HEENT: Normal. CHEST: Air entry present, equal bilateral. No added sound. CARDIOVASCULAR: Within normal limits. ABDOMEN: Soft, nontender, no hepatosplenomegaly. NEUROLOGIC: Drowsy, arousable, not communicative. SPINE: Nontender. LABORATORIES: White count 3.9, hemoglobin 11, hematocrit 32.7, platelets 81. INR 1.1. Sodium 140, potassium 4.9, creatinine 2.5, sugar 157. Troponin 1.31. ASSESSMENT: 1. Pancytopenia. 2. Small bowel obstruction. 3. Coronary artery disease. 4. Diabetes mellitus type 2. 5. Osteoarthritis. 6. Acute renal failure. PLAN: Small bowel obstruction, improving with conservative management. She has pancytopenic. Blood count stable. Did not require any blood transfusion. Cardiovascular stable. She is on cardiac med ications. We will continue cardiac medications, isosorbide 60 mg daily, metoprolol 50 mg daily, Lipi tor 20 mg daily and aspirin 81 mg daily. She is currently on prednisone 20 mg daily and Requip 0.25 mg p.o. b.i.d. She is also on colchicine 0.6 mg daily. We will continue that. Allopurinol 100 mg d aily. She is on bronchodilators. Continue that. Danna Santos MD cc: [id number] TT: 01/03/2017 09:24:43 Confirmation # [id number] Dictation # [id number]
[2017-01-03] MEDS: POLYETHYLENE GLYCOL 3350 17 GM/Dose PACKET PO SCH ×2 (09:52→18:18)
[2017-01-03] MEDS: Metoprolol Succinate 50 mg XL Tab PO SCH (09:53)
--- NOTE | 2017-01-03 16:06 | CP.PCM.PN ---
Subjective - Date & Time of Evaluation Date of Evaluation: 01/03/17 Time of Evaluation: 15:00 - Subjective Subjective: 01/03/2017 SUBJECTIVE: The patient is an 89-year-old female. Brought to the ED. She was not feeling well. She was found to have small bowel obstruction. Managed conservatively. Small bowel obstruction improving. She passed out at home. Currently, oriented. Currently, awake, not very alert. She also has history of diabetes mellitus type 2, controlled on current medication, history of osteoarthritis. No current issues. Also presented with acute renal failure on admission. She also has pancytopenia with low white count of 3.9, platelet count of 80,000 and hemoglobin of 10.3 g/dL. No events overnight. Able to feed by herself. PAST MEDICAL HISTORY: Hypertension, coronary artery disease, aortic valve replacement, pacemaker placement, non-insulin dependent diabetes mellitus, hyperlipidemia, osteoarthritis, chronic kidney disease stage III. SOCIAL HISTORY: Lives at home with daughter and son. PERSONAL HISTORY: No history of smoking, drinking, alcohol abuse. FAMILY HISTORY: Noncontributory. ALLERGIES: No known drug allergies. HOME MEDICATIONS: Metoprolol 25 mg daily, prednisone 20 mg daily, allopurinol 1 tablet daily, Requip 0.25 mg twice a day, Imdur 60 mg daily, Lipitor 20 mg daily, aspirin 81 mg daily, Percocet p.r.n. and multivitamin. REVIEW OF SYSTEMS: As per HPI. Rest of 12-point reviewed and negative. PHYSICAL EXAMINATION: GENERAL: Comfortable in bed, no acute distress. She is drowsy, but arousable, not very communicative. VITAL SIGNS: reviewed. HEENT: Normal. CHEST: Air entry present, equal bilateral. No added sound. CARDIOVASCULAR: Within normal limits. ABDOMEN: Soft, nontender, no hepatosplenomegaly. NEUROLOGIC: Drowsy, arousable, not communicative. SPINE: Nontender. LABORATORIES: White count 3.9, hemoglobin 11, hematocrit 32.7, platelets 81. INR 1.1. Sodium 140, potassium 4.9, creatinine 2.5, sugar 157. Troponin 1.31. ASSESSMENT: 1. Pancytopenia. 2. Small bowel obstruction. 3. Coronary artery disease. 4. Diabetes mellitus type 2. 5. Osteoarthritis. 6. Acute renal failure. PLAN: She has pancytopenic. She might have myelodysplastic syndrome. Blood count stable. Small bowel obstruction, improving with conservative management. . Cardiovascular stable. She is on cardiac medications. We will continue cardiac medications, isosorbide 60 mg daily, metoprolol 50 mg daily, Lipitor 20 mg daily and aspirin 81 mg daily. She is currently on prednisone 20 mg daily and Requip 0.25 mg p.o. b.i.d. She is also on colchicine 0.6 mg daily. We will continue that. Allopurinol 100 mg daily. She is on bronchodilators. Continue that. ARF improving. Son bedside. Discussed the status with him. Danna Santos MD Objective - Vital Signs/Intake and Output Vital Signs (last 24 hours): Temp Pulse Resp BP Pulse Ox 97.8 F 75 18 114/73 98 01/03/17 07:30 01/03/17 09:53 01/03/17 07:30 01/03/17 09:53 01/03/17 07:30 Intake and Output: 01/03/17 01/03/17 06:59 18:59 Intake Total 480 Balance 480 - Medications Medications: Current Medications Albuterol/Ipratropium (Duoneb 3 Mg/0.5 Mg (3 Ml) Ud) 3 ml IH [id number] PRN PRN Reason: Shortness of Breath Last Admin: 01/03/17 07:29 Dose: 3 ml Allopurinol (Zyloprim) 100 mg PO DAILY [facility] Last Admin: 01/03/17 09:53 Dose: 100 mg Aspirin (Aspirin Chewable) 81 mg PO DAILY [facility] Last Admin: 01/03/17 09:53 Dose: 81 mg Atorvastatin Calcium (Lipitor) 20 mg PO DAILY [facility] Last Admin: 01/03/17 09:53 Dose: 20 mg Colchicine (Colocrys) 0.6 mg PO DAILY [facility] Last Admin: 01/03/17 09:52 Dose: 0.6 mg Insulin Human Lispro (Humalog High) 0 units SC ACHS [facility] PRN Reason: Protocol Last Admin: 01/03/17 12:30 Dose: 4 units Isosorbide Mononitrate (Imdur) 60 mg PO DAILY [facility] Last Admin: 01/03/17 10:02 Dose: 60 mg Metoprolol Succinate (Toprol Xl) 50 mg PO DAILY [facility] Last Admin: 01/03/17 09:53 Dose: 50 mg Polyethylene Glycol (Miralax) 17 gm PO BID [facility] Last Admin: 01/03/17 09:52 Dose: 17 gm Prednisone (Prednisone Tab) 20 mg PO DAILY [facility] Last Admin: 01/03/17 09:53 Dose: 20 mg Ropinirole HCl (Requip) 0.25 mg PO BID [facility] Last Admin: 01/03/17 09:53 Dose: 0.25 mg - Labs Labs: 12/30/16 08:00 12/30/16 08:00 PT 12.2 Seconds (9.9-11.8) H 12/27/16 00:45 INR 1.13 (0.93-1.08) H 12/27/16 00:45 APTT 22.5 Seconds (23.7-30.8) L 12/27/16 00:45
[2017-01-04 08:31] VITALS: BP 111/73; PULSE 69; RESP 18; TEMP 97.5; O2SAT 94
[2017-01-04] MEDS: Insulin Lispro (HUMAlog) HIGH Coverage SC SCH ×2 (08:48→12:03)
[2017-01-04] MEDS: Metoprolol Succinate 50 mg XL Tab PO SCH (09:51)
[2017-01-04] MEDS: POLYETHYLENE GLYCOL 3350 17 GM/Dose PACKET PO SCH (09:51)
--- NOTE | 2017-01-04 10:02 | CP.PCM.PN ---
Subjective - Date & Time of Evaluation Date of Evaluation: 01/04/17 Time of Evaluation: 09:00 - Subjective Subjective: Alert, denies pain. Appetite fair. Objective - Vital Signs/Intake and Output Vital Signs (last 24 hours): Temp Pulse Resp BP Pulse Ox 97.5 F L 69 18 111/73 94 L 01/04/17 08:00 01/04/17 09:51 01/04/17 08:00 01/04/17 09:51 01/04/17 08:00 Intake and Output: 01/04/17 01/04/17 06:59 18:59 Intake Total 120 Output Total 300 Balance -180 - Medications Medications: Current Medications Albuterol/Ipratropium (Duoneb 3 Mg/0.5 Mg (3 Ml) Ud) 3 ml IH [id number] PRN PRN Reason: Shortness of Breath Last Admin: 01/03/17 07:29 Dose: 3 ml Allopurinol (Zyloprim) 100 mg PO DAILY [facility] Last Admin: 01/04/17 09:51 Dose: 100 mg Aspirin (Aspirin Chewable) 81 mg PO DAILY [facility] Last Admin: 01/04/17 09:50 Dose: 81 mg Colchicine (Colocrys) 0.6 mg PO DAILY [facility] Last Admin: 01/04/17 09:50 Dose: 0.6 mg Insulin Human Lispro (Humalog High) 0 units SC ACHS [facility] PRN Reason: Protocol Last Admin: 01/04/17 08:48 Dose: 2 units Isosorbide Mononitrate (Imdur) 60 mg PO DAILY [facility] Last Admin: 01/04/17 09:52 Dose: 60 mg Metoprolol Succinate (Toprol Xl) 50 mg PO DAILY [facility] Last Admin: 01/04/17 09:51 Dose: 50 mg Polyethylene Glycol (Miralax) 17 gm PO BID [facility] Last Admin: 01/04/17 09:51 Dose: 17 gm Prednisone (Prednisone Tab) 20 mg PO DAILY [facility] Last Admin: 01/04/17 09:51 Dose: 20 mg Ropinirole HCl (Requip) 0.25 mg PO BID [facility] Last Admin: 01/04/17 09:51 Dose: 0.25 mg - Labs Labs: 12/30/16 08:00 12/30/16 08:00 PT 12.2 Seconds (9.9-11.8) H 12/27/16 00:45 INR 1.13 (0.93-1.08) H 12/27/16 00:45 APTT 22.5 Seconds (23.7-30.8) L 12/27/16 00:45 - Constitutional Appears: Chronically Ill - Eye Exam Eye Exam: Normal appearance, PERRL - ENT Exam ENT Exam: Mucous Membranes Moist - Respiratory Exam Respiratory Exam: Decreased Breath Sounds, NORMAL BREATHING PATTERN - Cardiovascular Exam Cardiovascular Exam: Irregular Rhythm, +S1, +S2 - GI/Abdominal Exam GI & Abdominal Exam: Soft, Normal Bowel Sounds - Extremities Exam Additional comments: tenderness and swelling of joints in both hands - Back Exam Back Exam: NORMAL INSPECTION - Neurological Exam Neurological Exam: Alert - Skin Skin Exam: Dry, Pallor Assessment and Plan - Assessment and Plan (Free Text) Assessment: 89 year old female admitted with weakness,near syncope, arthritic pain on both hands, deconditioning. Patient is alert, states she is feeling better. She wants to go home. Patient's son at bedside. Family has decided to postpone hospice services and plan on discharge with visiting nurse services. Family aware that hospice care be initiated in the future if needed. Family appreciative of psychosocial support. Plan: Home with services. Thank you for allowing me to participate in this patients care
--- NOTE | 2017-01-04 17:41 | DS ---
This is an 89-year-old female who had come into the hospital who was found to have acute kidney injur y. She had non-ST elevation NV. The patient also had a small-bowel obstruction, clinically has impr aracely. She is able to tolerate her diet. No surgical intervention was planned for her bowel obstruct ion. She did improve. She is eating. She has no complaints of any headaches or dizziness. PHYSICAL EXAMINATION: VITAL SIGNS: Temperature is 97.5, pulse of 69, blood pressure is 111/73, respirations 18, O2 saturat ion 94%. GENERAL: The patient is comfortable, in no acute distress. HEENT: Anicteric sclerae. Moist mucosa. NECK: No JVD or adenopathy. CARDIAC: S1/S2. No murmurs. No rubs. Regular. RESPIRATORY: Clear to auscultation bilaterally. No wheezes, rales, or rhonchi. Good air entry. ABDOMEN: Bowel sounds are positive, soft, nontender, and nondistended. EXTREMITIES: No edema. Has 1+ pulses. ASSESSMENT: 1. Small-bowel obstruction, improved. 2. ST-elevation myocardial infarction, resolved. 3. Acute kidney injury, improved. 4. Coronary artery disease. 5. Hypertension. 6. Aortic valve replacement. 7. Pacemaker. 8. Diabetes type 2. 9. Dyslipidemia. 10. Osteoarthritis. 11. Peptic ulcer disease. 12. Gout. 13. Pancytopenia, possible myelodysplastic syndrome. 14. Do not resuscitate/do not intubate. PLAN: The patient is currently comfortable, end-of-life care and hospice evaluation and discussion a re ongoing. The patient is on allopurinol. She is going to continue with MiraLax for constipation. She is on Lipitor for dyslipidemia. She is receiving prednisone. The patient is on aspirin. I briana l discontinue the patient's prednisone at this point. I did speak to the patient's son at the [facility] e to give him an update. CONDITION: Stable. ACTIVITIES: Increase as tolerated. Toño Dill MD cc: [id number] TT: 01/04/2017 17:40:36 mn
== END 2017-01-04 12:08 | disposition home health service (06) | DRG 281 ==
LOC: ED 23:25 → ERH 12-27 02:58 → 2RSO 12-27 04:29 → 5RSO 12-31 14:25
PROVIDERS: ADMIT Internal Medicine Nephrology; ATTEND Internal Medicine Nephrology
PROC: 3E0F7GC Introduction of Other Therapeutic Substance into Respiratory Tract, Via Natural or Artificial Opening (ICD-10-PCS; principal; 2016-12-30)
DX: I21.4 Non-ST elevation (NSTEMI) myocardial infarction (principal); N17.9 Acute kidney failure, unspecified; D61.818 Other pancytopenia; K56.60 Unspecified intestinal obstruction; E11.22 Type 2 diabetes mellitus with diabetic chronic kidney disease; N18.3 Chronic kidney disease, stage 3 (moderate); I13.0 Hypertensive heart and chronic kidney disease with heart failure and stage 1 through stage 4 chronic kidney disease, or unspecified chronic kidney disease; I50.9 Heart failure, unspecified; E87.5 Hyperkalemia; E86.0 Dehydration; E78.5 Hyperlipidemia, unspecified; I25.10 Atherosclerotic heart disease of native coronary artery without angina pectoris; K21.9 Gastro-esophageal reflux disease without esophagitis; M15.9 Polyosteoarthritis, unspecified; M10.9 Gout, unspecified; K27.9 Peptic ulcer, site unspecified, unspecified as acute or chronic, without hemorrhage or perforation; I45.9 Conduction disorder, unspecified; G25.81 Restless legs syndrome; K59.00 Constipation, unspecified; Z66 Do not resuscitate; Z79.84 Long term (current) use of oral hypoglycemic drugs; Z74.01 Bed confinement status; Z95.0 Presence of cardiac pacemaker; Z95.2 Presence of prosthetic heart valve; Z95.1 Presence of aortocoronary bypass graft